=== PATIENT | female | born 1945 | race Caucasian/White ===

== ENCOUNTER 2020-07-13 08:14 | Outpatient (REF) | payer MEDICARE, OTHER, SELFPAY ==
[2020-07-13 11:45] LABS: Alanine Aminotransferase 28 U/L (0-31); Albumin Level 4.1 g/dL (3.5-5.0); Alkaline Phosphatase 104 U/L (39-117); Anion Gap 12 (12-20); Aspartate Amino Transferase 22 U/L (5-31); Bilirubin Total 1.2 mg/dL (0.0-1.0); Blood Urea Nitrogen 10 mg/dL (9-16); Calcium 9.3 mg/dL (8.4-10.2); Carbon Dioxide 31 mmol/L (22-29); Chloride 102 mmol/L (96-108); Cholesterol 216 mg/dL; Estimated Average Glucose 174 mg/dL; Estimated Glomerular Filt Rate > 60; Glucose Fasting 193 mg/dL (60-99); HDL Cholesterol 72 mg/dL; Hemoglobin A1c % 7.7 %; LDL Cholesterol Calculated 124 mg/dl; Potassium 4.9 mmol/l (3.3-5.1); Sodium 140 mmol/L (135-145); Total Protein 6.7 g/dL (6.5-8.0); Triglycerides 104 mg/dL
== END 2020-07-13 08:15 | disposition home or self-care (01) ==
LOC: HO.MANLR 08:14
PROVIDERS: PCP Internal Medicine; Visit Provider Internal Medicine
DX: E11.9 Type 2 diabetes mellitus without complications (principal)
CPT/HCPCS: 36415; 80053; 80061; 83036

== ENCOUNTER 2020-10-12 10:47 | Outpatient (REF) | payer MEDICARE, OTHER, SELFPAY ==
[2020-10-12 13:33] LABS: Estimated Average Glucose 177 mg/dL; Hemoglobin A1c % 7.8 %
== END 2020-10-12 10:48 | disposition home or self-care (01) ==
LOC: HO.MANLDS 10:47
PROVIDERS: PCP Internal Medicine; Visit Provider Internal Medicine
DX: E11.9 Type 2 diabetes mellitus without complications (principal)
CPT/HCPCS: 36415; 83036

== ENCOUNTER 2021-01-29 08:46 | Outpatient (REF) | payer MEDICARE, OTHER, SELFPAY ==
[2021-01-29 11:56] LABS: Estimated Average Glucose 214 mg/dL; Hemoglobin A1c % 9.1 %
[2021-01-29 12:02] LABS: Alanine Aminotransferase 18 U/L (0-31); Albumin Level 3.8 g/dL (3.5-5.0); Alkaline Phosphatase 85 U/L (39-117); Anion Gap 14 (12-20); Aspartate Amino Transferase 30 U/L (5-31); Bilirubin Total 1.4 mg/dL (0.0-1.0); Blood Urea Nitrogen 7 mg/dL (9-16); Calcium 9.2 mg/dL (8.4-10.2); Carbon Dioxide 28 mmol/L (22-29); Chloride 103 mmol/L (96-108); Cholesterol 174 mg/dL; Estimated Glomerular Filt Rate > 60; Glucose Fasting 252 mg/dL (60-99); HDL Cholesterol 49 mg/dL; LDL Cholesterol Calculated 97 mg/dl; Potassium 3.9 mmol/L (3.3-5.1); Sodium 141 mmol/L (135-145); Total Protein 6.1 g/dL (6.5-8.0); Triglycerides 143 mg/dL
[2021-01-29 12:18] LABS: Creatinine Urine 207.42 mg/dL
[2021-01-29 12:23] LABS: Thyroid Stimulating Hormone 2.28 uIU/mL (0.32-4.0)
== END 2021-01-29 08:47 | disposition home or self-care (01) ==
LOC: HO.MANLDS 08:46
PROVIDERS: PCP Internal Medicine; Visit Provider Internal Medicine
DX: E11.9 Type 2 diabetes mellitus without complications (principal); E03.9 Hypothyroidism, unspecified
CPT/HCPCS: 36415; 80053; 80061; 82043; 83036; 84443

== ENCOUNTER 2021-05-24 10:55 | Outpatient (REF) | payer MEDICARE, OTHER, SELFPAY ==
[2021-05-24 12:51] LABS: Hematocrit 37.7 % (37.0-47.0); Hemoglobin 12.3 g/dl (12.0-16.0); Mean Corpuscular HGB Conc 32.6 g/dl (31.0-35.0); Mean Corpuscular Hemoglobin 28.5 pg (27.0-33.0); Mean Corpuscular Volume 87.3 fL (80.0-98.0); Mean Platelet Volume 11.8 fL (9.4-12.3); Platelet Count 170 X10*3/uL (160-400); Red Blood Count 4.32 X10*6/uL (4.20-5.50); Red Cell Distribution Width 14.1 % (11.0-16.0); White Blood Count 6.7 X10*3/uL (4.8-10.8)
[2021-05-24 13:32] LABS: Alanine Aminotransferase 25 U/L (0-31); Albumin Level 3.9 g/dL (3.5-5.0); Alkaline Phosphatase 85 U/L (39-117); Anion Gap 15 (12-20); Aspartate Amino Transferase 35 U/L (5-31); Bilirubin Total 1.5 mg/dL (0.0-1.0); Blood Urea Nitrogen 7 mg/dL (9-16); Calcium 9.7 mg/dL (8.4-10.2); Carbon Dioxide 26 mmol/L (22-29); Chloride 105 mmol/L (96-108); Estimated Glomerular Filt Rate > 60; Glucose Fasting 110 mg/dL (60-99); Potassium 4.5 mmol/L (3.3-5.1); Sodium 141 mmol/L (135-145); Total Protein 6.6 g/dL (6.5-8.0)
[2021-05-24 13:38] LABS: Estimated Average Glucose 114 mg/dL; Hemoglobin A1c % 5.6 %
== END 2021-05-24 10:56 | disposition home or self-care (01) ==
LOC: HO.MANLDS 10:55
PROVIDERS: PCP Internal Medicine; Visit Provider Internal Medicine
DX: I10 Essential (primary) hypertension (principal); E11.9 Type 2 diabetes mellitus without complications
CPT/HCPCS: 36415; 80053; 83036; 85027

== ENCOUNTER 2021-09-02 11:35 | Outpatient (REF) | payer MEDICARE, OTHER, SELFPAY ==
[2021-09-02 13:53] LABS: Estimated Average Glucose 114 mg/dL; Hemoglobin A1c % 5.6 %
[2021-09-02 14:27] LABS: Creatinine Urine 198.87 mg/dL; Microalbum/Creatinine Ratio Ur 7.5 ug/mg cr
[2021-09-02 14:32] LABS: Alanine Aminotransferase 22 U/L (0-31); Alkaline Phosphatase 75 U/L (39-117); Anion Gap 12 (12-20); Aspartate Amino Transferase 33 U/L (5-31); Bilirubin Total 1.3 mg/dL (0.0-1.0); Blood Urea Nitrogen 8 mg/dL (9-16); Calcium 9.6 mg/dL (8.4-10.2); Carbon Dioxide 28 mmol/L (22-29); Chloride 107 mmol/L (96-108); Cholesterol 201 mg/dL; Estimated Glomerular Filt Rate > 60; Glucose Fasting 106 mg/dL (60-99); HDL Cholesterol 53 mg/dL; LDL Cholesterol Calculated 122 mg/dl; Potassium 3.9 mmol/L (3.3-5.1); Sodium 143 mmol/L (135-145); Total Protein 6.5 g/dL (6.5-8.0); Triglycerides 134 mg/dL
[2021-09-02 14:46] LABS: Free T4 (Free Thyroxine) 1.26 ng/dL (0.71-1.85); Thyroid Stimulating Hormone 0.24 uIU/mL (0.32-4.0)
== END 2021-09-02 11:36 | disposition home or self-care (01) ==
LOC: HO.MANLDS 11:35
PROVIDERS: PCP Internal Medicine; Visit Provider Internal Medicine
DX: E03.9 Hypothyroidism, unspecified (principal); E11.9 Type 2 diabetes mellitus without complications
CPT/HCPCS: 36415; 80053; 80061; 82043; 83036; 84439; 84443

== ENCOUNTER 2022-02-17 08:41 | Outpatient (REF) | payer MEDICARE, OTHER, SELFPAY ==
[2022-02-17 11:22] LABS: Alanine Aminotransferase 24 U/L (0-31); Alkaline Phosphatase 78 U/L (39-117); Anion Gap 15 (12-20); Aspartate Amino Transferase 36 U/L (5-31); Bilirubin Total 1.4 mg/dL (0.0-1.0); Blood Urea Nitrogen 10 mg/dL (9-16); Calcium 9.8 mg/dL (8.4-10.2); Carbon Dioxide 27 mmol/L (22-29); Chloride 108 mmol/L (96-108); Cholesterol 209 mg/dL; Estimated Glomerular Filt Rate > 60; Glucose Random 123 mg/dL (60-115); HDL Cholesterol 53 mg/dL; LDL Cholesterol Calculated 119 mg/dl; Potassium 4.4 mmol/L (3.3-5.1); Sodium 146 mmol/L (135-145); Total Protein 6.6 g/dL (6.5-8.0); Triglycerides 185 mg/dL
[2022-02-17 11:24] LABS: Estimated Average Glucose 114 mg/dL; Hemoglobin A1c % 5.6 %
[2022-02-17 11:36] LABS: Creatinine Urine 149.56 mg/dL; Microalbum/Creatinine Ratio Ur 12.7 ug/mg cr
[2022-02-17 11:42] LABS: Thyroid Stimulating Hormone 8.24 uIU/mL (0.32-4.0)
== END 2022-02-17 08:42 | disposition home or self-care (01) ==
LOC: HO.MANLDS 08:41
PROVIDERS: Visit Provider Internal Medicine
DX: E03.9 Hypothyroidism, unspecified (principal); E11.9 Type 2 diabetes mellitus without complications
CPT/HCPCS: 36415; 80053; 80061; 82043; 83036; 84443

== ENCOUNTER 2022-08-22 14:33 | Outpatient (REF) | payer MEDICARE, OTHER, SELFPAY ==
[2022-08-22 19:23] LABS: MANUAL DIFF FLAG NO
[2022-08-22 19:31] LABS: Basophils Absolute Auto 0.1 X10*3/uL (0.0-0.2); Basophils Percent Auto 1.4 % (0-2); Eosinophils Absolute Auto 0.3 X10*3/uL (0.0-0.4); Eosinophils Percent Auto 3.7 % (0-4); Hemoglobin 13.4 g/dl (12.0-16.0); Imm Gran Abs Auto 0.02 X10*3/uL (0.00-0.03); Imm Gran Pct Auto 0.3 % (0.0-0.4); Mean Corpuscular HGB Conc 33.5 g/dl (31.0-35.0); Mean Corpuscular Hemoglobin 28.1 pg (27.0-33.0); Mean Corpuscular Volume 83.9 fL (80.0-98.0); Mean Platelet Volume 11.7 fL (9.4-12.3); Monocytes Absolute Auto 0.7 X10*3/uL (0.1-1.2); Monocytes Percent Auto 9.7 % (2-11); Neutrophils Absolute Auto 4.2 x10*3/uL (2.0-8.3); Neutrophils Percent Auto 57.9 % (45-73); Platelet Count 176 X10*3/uL (160-400); Red Blood Count 4.77 X10*6/uL (4.20-5.50); Red Cell Distribution Width 13.3 % (11.0-16.0); White Blood Count 7.2 X10*3/uL (4.8-10.8)
[2022-08-22 19:42] LABS: Alanine Aminotransferase 19 U/L (0-31); Albumin Level 4.2 g/dL (3.5-5.0); Alkaline Phosphatase 97 U/L (39-117); Amylase 50 U/L (28-100); Anion Gap 17 (12-20); Aspartate Amino Transferase 26 U/L (5-31); Bilirubin Total 1.2 mg/dL (0.0-1.0); Blood Urea Nitrogen 12 mg/dL (9-16); C Reactive Protein 0.34 mg/dL (< or = 0.50); Calcium 9.8 mg/dL (8.4-10.2); Carbon Dioxide 28 mmol/L (22-29); Chloride 103 mmol/L (96-108); Estimated Glomerular Filt Rate > 60; Gamma Glutamyl Transpeptidase 59 U/L (7-33); Glucose Random 138 mg/dL (60-115); Lipase 42 U/L (8-78); Potassium 4.2 mmol/L (3.3-5.1); Sodium 144 mmol/L (135-145); Total Protein 6.7 g/dL (6.5-8.0)
[2022-08-22 19:58] LABS: Free T4 (Free Thyroxine) 0.97 ng/dL (0.71-1.85); Thyroid Stimulating Hormone 6.82 uIU/mL (0.32-4.0)
[2022-08-22 20:15] LABS: Erythrocyte Sedimentation Rate 22 MM/HR (0-20)
[2022-08-23 05:15] LABS: Estimated Average Glucose 140 mg/dL; Hemoglobin A1c % 6.5 %
== END 2022-08-22 14:34 | disposition home or self-care (01) ==
LOC: HO.MANLDS 14:33
PROVIDERS: Visit Provider Physician Assistant
DX: R63.0 Anorexia (principal); E11.9 Type 2 diabetes mellitus without complications
CPT/HCPCS: 36415; 80053; 82150; 82977; 83036; 83690; 84439; 84443; 85025; 85652; 86140

== ENCOUNTER 2022-12-02 11:37 | Outpatient (REF) | payer MEDICARE, OTHER, SELFPAY ==
[2022-12-02 14:10] LABS: Estimated Average Glucose 134 mg/dL; Hemoglobin A1c % 6.3 %
[2022-12-02 14:23] LABS: Alanine Aminotransferase 22 U/L (0-31); Albumin Level 3.8 g/dL (3.5-5.0); Alkaline Phosphatase 119 U/L (39-117); Anion Gap 13 (12-20); Aspartate Amino Transferase 24 U/L (5-31); Bilirubin Total 0.7 mg/dL (0.0-1.0); Blood Urea Nitrogen 19 mg/dL (9-16); Calcium 9.4 mg/dL (8.4-10.2); Carbon Dioxide 30 mmol/L (22-29); Chloride 105 mmol/L (96-108); Estimated Glomerular Filt Rate > 60; Glucose Random 194 mg/dL (60-115); Potassium 4.4 mmol/L (3.3-5.1); Sodium 144 mmol/L (135-145); Total Protein 6.3 g/dL (6.5-8.0)
[2022-12-02 14:40] LABS: Free T4 (Free Thyroxine) 0.92 ng/dL (0.71-1.85); Thyroid Stimulating Hormone 7.87 uIU/mL (0.32-4.0)
== END 2022-12-02 11:38 | disposition home or self-care (01) ==
LOC: HO.MANLDS 11:37
PROVIDERS: Visit Provider Internal Medicine
DX: E03.8 Other specified hypothyroidism (principal); E11.9 Type 2 diabetes mellitus without complications
CPT/HCPCS: 36415; 80053; 83036; 84439; 84443

== ENCOUNTER 2024-10-10 10:46 | Outpatient (REF) | payer MEDICARE, OTHER, SELFPAY ==
--- OUTSIDE RECORDS SUMMARY | 2024-10-10 12:47 | XMS_ITS | Continuity of Care Document ---
Author Organization [facility], [facility] Address [address] [place] [address] [place] [address] Assessment No assessment recorded. Plan of Treatment Reminders Order Date Submit Date Provider Last Modified By Organization Details Last Modified Time Details Appointments Hospital F/U 2024 10:00A M FOREIGN ZEPEDA Not available Not available Not available Lab hemoglobi n A1c, QN, blood 2024 025 [facility], [address] [place] [address], [id number], 10/10/2024 10:35:37 CMP, serum or plasma 2024 025 [facility], [address] [place] [address], [id number], 10/10/2024 10:35:37 TSH + free T4, serum 2024 025 [facility], [address] [place] [address], [id number], 10/10/2024 10:35:37 iron + TIBC + ferritin, serum 2024 025 [facility], [address] [place] [address], [id number], 10/10/2024 10:35:37 CBC w/ auto diff 2024 025 [facility], [address] [place] [address], [id number], 10/10/2024 10:35:37 vitamin B12 + folate, serum or blood 2024 025 [facility], [address], [place], [address], 10/10/2024 10:35:37 Referral None recorded. Procedures None recorded. Surgeries None recorded. Imaging None recorded. Medication Orders None recorded. Patient TargetsNo targets recorded. Patient InstructionsNo instructions recorded. Reason for Referral None Reported. 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 29441702 Active 2019 Not Available [facility] 20:36:42 Aphasia 42336895 Active 2021 FOREIGN ZEPEDA [address] [place] [address], [address], [facility] 2 12:16:17 Loss of appetite 62671956 Active 2022 FOREIGN ZEPEDA [address] [place] [address], [address], [facility] 3 14:12:55 Liver function tests outside reference range 124383901 Active 2022 FOREIGN ZEPEDA [address] [place] [address], [address], [facility] 3 14:04:20 Lumbago with sciatica 166949471 Active 2022 Ted Nunez DO [address] [place] [address], [address], [facility] 3 11:05:42 Lumbago with sciatica 020469152 Active 2022 Ted Nunez DO [address] [place] [address], [address], [facility] 3 11:05:49 Edema of lower extremity 727041174 Active 2022 FOREIGN ZEPEDA [address] [place], [address], [facility] 3 16:05:56 Candidias is of skin 33141065 Active 2022 FOREIGN ZEPEDA [address] [place], [address], [facility] 3 11:20:50 Celluliti s 777451045 Active 2022 FOREIGN ZEPEDA [address] [place] [address], [address], [facility] 3 11:22:19 Cerebrova scular accident 683612916 Active 2022 FOREIGN ZEPEDA [address] [place] [address], [address], [facility] 3 11:29:13 Transient cerebral ischemia 531094099 Active 2022 FOREIGN ZEPEDA [address] [place] [address], [address], [facility] 3 11:29:42 Pneumonia 877974064 Active 2023 FOREIGN ZEEPDA [address] [place] [address], [address], [facility] 4 14:48:40 Candidias is of vagina 84643655 Active 2023 FOREIGN ZEPEDA [address] [place] [address], , [facility] 4 10:21:06 Migraine 84252305 Active 2023 FOREIGN ZEPEDA [address] [place] [address], , [facility] 4 10:25:45 Dysuria 57668329 Active 2024 FOREIGN ZEPEDA [address] [place] [address], [address], [facility] 5 12:52:38 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 a pneumonia e 428348728 Active 2024 FOREIGN ZEPEDA [address] [place], [address], [facility] 5 16:46:53 Pressure injury of buttock stage I 493294181426 16195 Active 2024 FOREIGN ZEPEDA [address] [place], [address], [facility] 5 14:24:33 Memory impairmen t 375239575 Active 2024 FOREIGN ZEPEDA [address] [place] [address], [address], [facility] 5 14:06:33 Nausea and vomiting 79336795 Active 2024 FOREIGN ZEPEDA [address] [place], [address], [facility] 5 14:15:24 Dysphagia 97962867 Active 2024 FOREIGN ZEPEDA [address] [place], [address], [facility] 5 14:17:02 Anemia 214600357 Active 2024 FOREIGN ZEPEDA [address] [place], [address], [facility] 5 10:33:03 Hypothyro idism 83675300 Active 2017 Not Available [facility] 20:36:42 History of depressio n 414532929 Active 2017 Not Available [facility] 20:36:42 Hypertens nirali disorder 38381062 Active 2017 Not Available [facility] 20:36:42 Hyperlipi demia 25064795 Active 2017 Not Available [facility] 20:36:42 Polymyalg ia rheumatic a 59807807 Active 2017 Not Available [facility] 20:36:42 Lyme disease 34930780 Active 2017 Not Available [facility] 20:36:42 Type 2 diabetes mellitus 69054184 Active 2017 Not Available [facility] 20:36:42 Problem Notes None recorded. Procedures Surgical History Date Name Laterality Status Provider Name and Address Organization Details Recorded Time 5 WOUND CARE completed FOREIGN ZEPEDA [address] [place], [address], [facility] 09/09/2024 14:22:26 Imaging Results None recorded. Procedure Notes None recorded. Medical Equipment None Reported. Allergies Allergen ID Allergen Name Allergen Category Reaction Reaction Severity Criticality Documentation Date Start Date Code Code System Note Provider Name and Address Organization Details Recorded Time 1200 Product containin g penicilli n (product) medicatio n rash Not available Not available 11/06/2017 07380 8001 [facility] 16:[facility]56 1201 Substance with sulfonami de structure and antibacte rial mechanism of action (substanc e) medicatio n Not available Not available Not available 11/06/2017 89867 8003 [facility] 16:06[facility]08 3604 Levaquin medicatio n other moderate Not available 05/31/2019 00612 2 RxNorm Ted Nunez DO [address] [place], [address], [facility] 9 13:21:51 Medications Name Sig Start Date Stop Date Status Note LastModified by Organization Details LastModified Time levothyroxi ne 175 mcg tablet TAKE 1 TABLET BY MOUTH EVERY DAY 10/10 completed Not Available Not Available Not Available levothyroxi ne 137 mcg tablet Take 1 tablet every day by oral route for 90 days. 12/03 completed Not Available Not Available Not Available atorvastati n 80 mg tablet TAKE 1 TABLET BY MOUTH EVERY DAY active Not Available Not Available No t Available prednisone 10 mg tablet TAKE 1 TABLET BY MOUTH TWICE A DAY FOR 10 DAYS 09/09 completed Not Available Not Available Not Available gabapentin 600 mg tablet TAKE 1 TABLET BY MOUTH TWICE A DAY 04/21 completed Not Available Not Available Not Available doxycycline hyclate 100 mg capsule TAKE 1 CAPSULE BY MOUTH TWICE A DAY FOR 10 DAYS 10/10 completed Not Available Not Available Not Available paroxetine 10 mg tablet Take 1.5 tablets every day by oral route. 08/22 completed Not Available Not Available Not Available torsemide 20 mg tablet TAKE 2 TABLETS BY MOUTH EVERY DAY active Not Available Not Available No t Available citalopram 40 mg tablet TAKE 1 TABLET BY MOUTH EVERY DAY active Not Available Not Available No t Available cefpodoxime 200 mg tablet 08/17 completed Not Available Not Available Not Available azithromyci n 250 mg tablet TAKE 2 TABLETS BY MOUTH TODAY, THEN TAKE 1 TABLET DAILY FOR 4 DAYS DIRECTED 08/17 completed Not Available Not Available Not Available ofloxacin 0.3 % eye drops 08/09 completed Not Available Not Available Not Available fluconazole 150 mg tablet TAKE 1 TABLET BY MOUTH EVERY DAY DIRECTED FOR 2 DAYS 10/10 completed Not Available Not Available Not Available zinc oxide 25 % topical paste Apply 1 g twice a day by topical route as directed for 30 days. 09/09 completed Not Available Not Available Not Available ondansetron HCl 8 mg tablet TAKE 1 TABLET BY MOUTH THREE TIMES DAILY NEEDED 08/22 completed Not Available Not Available Not Available fluconazole 200 mg tablet TAKE 1 TABLET BY MOUTH EVERY DAY FOR 14 DAYS 10/10 completed Not Available Not Available Not Available glipizide ER 10 mg tablet, extended release 24 hr TAKE 1 TABLET BY MOUTH EVERY DAY NEEDS APPT FOR FURTHER REFILLS. CALL OFFICE 04/15 completed Not Available Not Available Not Available meloxicam 15 mg tablet TAKE 1 TABLET BY MOUTH EVERY DAY active Not Available Not Available No t Available glipizide 10 mg tablet Take 1 tablet every day by oral route. active Not Available Not Available No t Available prednisone 20 mg tablet 11/09 completed Not Available Not Available Not Available gabapentin 400 mg capsule TAKE 1 CAPSULE BY MOUTH TWICE DAILY 05/24 completed Not Available Not Available Not Available prednisone 5 mg tablet 11/09 completed Not Available Not Available Not Available ciprofloxac in 500 mg tablet TAKE 1 TABLET BY MOUTH EVERY 12 HOURS FOR 7 DAYS 09/09 completed Not Available Not Available Not Available tramadol 50 mg tablet TAKE 2 TABLETS BY MOUTH EVERY 6 HOURS NEEDED FOR 7 DAYS 04/15 completed Not Available Not Available Not Available butalbital- acetaminoph en-caffeine 50 mg-325 mg-40 mg tablet Take 1 tablet 4 times a day by oral route as needed. 2023 active Not Available Not Available Not Avai lable ondansetron 8 mg disintegrat ing tablet PLACE 1 TABLET ON TONGUE TWICE A DAY DIRECTED FOR 14 DAYS. active Not Available Not Available No t Available meloxicam 7.5 mg tablet TAKE 1 TABLET BY MOUTH [facility] FOOD EVERY DAY NEEDED 08/22 completed Not Available Not Available Not Available alprazolam 0.5 mg tablet TAKE 1 TABLET BY MOUTH EVERY 6 TO 8 HOURS NEEDED 02/18 completed Not Available Not Available Not Available gabapentin 800 mg tablet TAKE 1 TABLET BY MOUTH TWICE A DAY 10/10 completed Not Available Not Available Not Available prednisone 1 mg tablet 11/09 completed Not Available Not Available Not Available benzonatate 100 mg capsule TAKE 1 TO 2 CAPSULES BY MOUTH EVERY 8 HOURS NEEDED 11/09 completed Not Available Not Available Not Available prednisone 2.5 mg tablet 11/09 completed Not Available Not Available Not Available cephalexin 500 mg capsule TAKE 1 CAPSULE BY MOUTH EVERY 6 HOURS FOR 10 DAYS 04/15 completed Not Available Not Available Not Available levothyroxi ne 125 mcg tablet TAKE 1 TABLET BY MOUTH EVERY DAY 08/26 completed Not Available Not Available Not Available triamcinolo ne acetonide 0.1 % topical ointment MATA EXT AA BID PRN 05/24 completed Not Available Not Available Not Available nystatin 100,000 unit/gram topical cream APPLY TO AFFECTED AREA TWICE A DAY active Not Available Not Available No t Available misoprostol 200 mcg tablet Take 1 tablet by mouth twice a day 08/09 completed Not Available Not Available Not Available levothyroxi ne 150 mcg tablet Take 1 tablet every day by oral route. active Not Available Not Available No t Available gabapentin 300 mg capsule 11/09 completed Not Available Not Available Not Available aspirin 81 mg chewable tablet CHEW AND SWALLOW 1 TABLET BY MOUTH DAILY active Not Available Not Available No t Available diclofenac sodium 75 mg tablet,brennan yed release TAKE ONE TABLET BY MOUTH TWICE A DAY WITH MEALS 04/28 completed Not Available Not Available Not Available mupirocin 2 % topical ointment APPLY A SMALL AMOUNT TO AFFECTED AREA 3 TIMES A DAY active Not Available Not Available No t Available furosemide 20 mg tablet TAKE 1 TABLET BY MOUTH EVERY DAY FOR 14 DAYS 10/10 completed Not Available Not Available Not Available levofloxaci n 500 mg tablet Take 1 tablet every 24 hours by oral route for 10 days. 09/02 completed Not Available Not Available Not Available methylpredn isolone 4 mg tablets in a dose pack TAKE 6 TABLETS ON DAY 1 DIRECTED ON PACKAGE AND DECREASE BY 1 TAB EACH DAY FOR A TOTAL OF 6 DAYS 08/17 completed Not Available Not Available Not Available paroxetine 40 mg tablet TAKE 1 AND 1/2 TABLETS BY MOUTH EVERY DAY 02/18 completed Not Available Not Available Not Available fluticasone propionate 50 mcg/actuati on nasal spray,suspe nsion Yoder 1 spray every day by intranasa l route. 08/09 completed Not Available Not Available Not Available doxycycline hyclate 100 mg tablet Take 1 tablet twice a day by oral route for 10 days. 10/10 completed Not Available Not Available Not Available glipizide 5 mg tablet TAKE 1 TABLET BY MOUTH EVERY DAY 10/10 completed Not Available Not Available Not Available duloxetine 60 mg capsule,del ayed release TAKE 1 CAPSULE BY MOUTH EVERY DAY active Not Available Not Available No t Available Boostrix Tdap 2.5 Lf unit-8 mcg-5 Lf/0.5 mL intramuscul ar syringe 04/28 completed Not Available Not Available Not Available Prevnar 13 (PF) 0.5 mL intramuscul ar syringe ADM 0.5ML IM UTD 10/12 completed Not Available Not Available Not Available torsemide 40 mg tablet Take 1 tablet every day by oral route for 14 days. 04/15 completed Not Available Not Available Not Available Vitals Date Recorded Body height Body mass index (BMI) Body weight Heart rate Oxygen saturation Oxygen saturation in Arterial blood by Pulse oximetry Systolic blood pressure Diastolic blood pressure Provider Name and Address Organization Details Last Updated DateTime 5 167.64 cm 46.5 kg/m2 764252. 24 g 103 /min 94 % 94 % 134 mm[Hg] 78 mm[Hg] Daysi Varma [facility] 5 10:06:21 Social History Question Answer Notes LastModified by Organizat ion Details LastModified Time Tobacco Smoking Status Never Smoker Not Available [facility] 05/08/2020 03:36:24 What Was The Date Of Your Most Recent Tobacco Screening? 10/10/2024 [email or web address] Information not available 10/10/2024 Do You Or Have You Ever Used Any Other Forms Of Tobacco Or Nicotine? No Information not available 09/09/2024 Sex: Unknown Functional Status None recorded. Mental Status None recorded. Family History Nothing Reported. Medical History No medical history recorded. Gynecological HistoryNo gynecological history recorded. Obstetrics History GPAL:G 0 P 0 0 0 0 Immunizations Vaccine Type Date Status Note Provider Nam e and Address Organization Details Recorded Time Influenza, split virus, quadrivalent, preservative 03/17/20 18 completed Karen amaya [facility] 04/04/2020 10:08:50 Tdap 03/17/20 18 completed Karen amaya [facility] 04/04/2020 10:08:50 COVID-19, mRNA, LNP-S, PF, 30 mcg/0.3 mL dose 10/04/19 21 completed Eri amaya [facility] 02/05/2021 10:16:05 COVID-19, mRNA, LNP-S, PF, 30 mcg/0.3 mL dose 10/27/19 21 completed Eri amaya [facility] 02/05/2021 10:16:09 Influenza, split virus, quadrivalent, preservative 04/24/20 21 completed Ted Nunez, DO [address] [facility], [place], [address], [facility] 04/25/2021 16:51:57 COVID-19, mRNA, LNP-S, PF, 30 mcg/0.3 mL dose 04/30/20 21 completed Eri amaya [facility] 05/03/2021 08:21:32 pneumococcal polysaccharide PPV23 04/25/20 14 completed Karen amaya [facility] 04/04/2020 10:08:50 zoster live 06/05/20 16 completed Karen amaya [facility] 04/04/2020 10:08:50 Td(adult) unspecified formulation 09/04/19 12 completed Karen amaya [facility] 04/04/2020 10:08:50 Influenza, split virus, quadrivalent, preservative 03/21/20 20 completed Karen amaya [facility] 04/04/2020 10:08:50 Pneumococcal conjugate PCV 13 05/29/20 20 completed Ted Nunez, DO [address] [place] [address], [place], [address], [facility] 05/31/2020 17:41:59 Past Encounters Encounter ID Performer Location Encounter Start Date Encounter Closed Date Diagnosis/Indication Diagnosis SNOMED-CT Code Diagnosis ICD10 Code Diagnosis Note [id number] FOREIGN ZEPEDA [facility] [address] [address] 09/09/2024 13:51:47 09/09/2024 14:59:56 Pressure injury of buttock stage I 7913378063 5493632 L89.309 started a few Memory impairment 117231 006 R41.3 after stroke, complicati on due to stroke Nausea and vomiting 1691999 R11.2 agreed to trial something for nausea while we work her up for the dysphagia Dysphagia 41708080 R13.1 2 agreed to swallow study [id number] FOREIGN ZEPEDA [facility] [address] [address] 10/10/2024 09:40:32 10/10/2024 10:42:42 Type 2 diabetes mellitus 46658900 E11.9 stable Body mass index 40+ - severely obese 128622904 Z68.43 discussed diet and exercises Cerebrovas cular accident 554143352 I63.9 stable Hypertensive disorder 38 671981 I10 134/78 L arm Hypothyroidism 74472218 E03.8 dropped down to 150 mcg Transient cerebral ischemia 243340891 G45.9 stable Anemia 424271582 D64.9 will set up with recheck blood work Health Concerns Section Related Observation LastModified by Organization Detai ls LastModified Time None Recorded Concern Status LastModified by Organization Details LastModified Time None Recorded Payers Encounter Date Sequence Insurance Name Policy Number Policy Novak Covered Member ID Novak Member ID Guarantor Name 10/10/2024 1 [place] [employer] Minoo Anderson [id number] Minoo Anderson 10/10/2024 2 [facility] (MEDICARE SUPPLEMENT) Minoo Anderson [id number] Minoo Anderson Notes Date Note Type Note Provider Name a nd Address Organization Details Recorded Time 10/10/2024 text/html hospital d/c the patient was admitted to the hospital with presentation of AMSd/c note mentions she has been refusing her medication for about a weekthe patient reports that she had a CT x 2 and MRI x 1, no sig acute changes suggestive of CVA the patient lab work was overall w/n/l, mild anemia which is baseline for patient reports that she was very confused, would forget where she was going, what she was doing to note, patient has hx of dementia/memory impairment since 2022 the patient states she is baseline memory, aware she does have memory issues the patient is currently showing lower glucose at home, was in the 200s in the hospital, says her glucose is now down to 99 a1c was 9.6% per reportthe patient was increased on her glipizide 10 mg rechjenaro MCMILLAN, FOREIGN [address] [facility], [place], [address], [facility] 10/10/2024 10:38:24 OBGyn Episode No OBEpisode recorded.
--- OUTSIDE RECORDS SUMMARY | 2024-10-10 12:47 | XMS_ITS | Data Portability ---
Author Organization [facility] Home Service Address [address] [place] [address] Assessment Encounter Date Assessment Date Assessment LastModified by Organization Details LastModified Time 07/15/2023 07/15/2023 Patient agreed and verbally consents to this audio and video Telehealth appt via a secure platform [email or web address] Not available 07/15/2023 14:49:15 04/15/2024 04/15/2024 Patient agreed and verbally consents to this audio and video Telehealth appt via a secure platform [email or web address] Not available 04/15/2024 10:22:38 08/17/2024 08/17/2024 Patient agreed and verbally consents to this audio and video Telehealth appt via a secure platform [email or web address] Not available 08/17/2024 14:30:02 Plan of Treatment Reminders Order Date Submit Date Provider Last Modified By Organization Details Last Modified Time Details Appointments Hospital F/U 2024 10:00A M FOREIGN ZEPEDA Not available Not available Not available Lab culture, wound 2024 025 [facility], [address] [place] [address], [place], [address], 09/11/2024 18:21:03 Referral None recorded. Procedures None recorded. Surgeries None recorded. Imaging barium swallow study 2024 025 [facility] - Outpatient Imaging Central Scheduling (Not Breast), [address] [place] [address], [id number], 09/23/2024 08:15:01 Medication Orders mupirocin 2 % topical ointment 2024 025 [facility]Pharmacy #2025, [address] [place] [address], [id number], 09/09/2024 14:14:26 ondansetr on 8 mg disintegr ating tablet 2024 025 [facility] [address] [place] [address], [address], 09/09/2024 14:18:43 ciproflox acin 500 mg tablet 2024 025 [facility] [address] [place] [address], [address], 09/09/2024 14:13:12 prednison e 10 mg tablet 2024 025 [facility] [address] [place] [address], [address], 09/09/2024 14:13:00 fluconazo le 200 mg tablet 2024 025 [facility] [address] [place] [address], [address], 08/17/2024 14:28:40 butalbita l-acetami nophen-ca ffeine 50 mg-325 mg-40 mg tablet 2023 024 [facility] [address] [place] [address], [address], 04/15/2024 10:26:10 nystatin 100,000 unit/gram topical cream 2023 024 [facility]Ph[facility]acy #2024, [address] [place] [address], [address], 04/15/2024 10:29:44 fluconazo le 150 mg tablet 2023 024 [email or web address] [facility] #2024, [address] [place] [address], [address], 08/17/2024 14:24:13 Zithromax Z-Juan Carlos 250 mg tablet 2023 024 [facility] [address] [place] [address], [address], 08/17/2024 14:23:26 prednison e 10 mg tablet 2023 024 [facility] [address] [place] [address], [address], 09/09/2024 14:12:58 doxycycli ne hyclate 100 mg capsule 2023 024 [facility] [address] [place] [address], [address], 04/15/2024 10:19:20 Medrol (Juan Carlos) 4 mg tablets in a dose pack 2023 [facility] [address] [place] [address], [address], 08/17/2024 14:24:19 nystatin 100,000 unit/gram topical cream 2022 023 [facility] [address] [place], [address], 04/21/2023 11:22:17 fluconazo le 150 mg tablet 2022 023 [facility] [address] [place], [address], 08/17/2024 14:24:13 cephalexi n 500 mg capsule 2022 024 [facility] [address] [place] [address], [address], 04/15/2024 10:19:13 Patient TargetsNo targets recorded. Patient InstructionsNo instructions recorded. Reason for Referral None Reported. Results Created Date Observation Date Name Description Value Unit Range Abnormal Flag Note LastModifiedBy Organization Detail LastModifiedTime 09/16/1909/16/2023 trans -thor acic echoc ardio gram (TTE) (PROC ) No observ ation record ed. [email or web address] [facility] [place] [address], [place], [address], 09/16/2023 15:08:27 Result Notes None recorded. 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 95109982 Active 2019 Not Available [facility] 1 20:36:42 Acute bronchiti s 40422723 Active 2021 FOREIGN ZEPEDA [address] [place] [address], [address], [facility] 2 10:40:18 Acute sinusitis 89362459 Active 2021 Ted Nunez DO [address] [place] [address], [address], [facility] 2 14:20:12 Aphasia 24144536 Active 2021 FOREIGN ZEPEDA [address] [place] [address], [address], [facility] 2 12:16:17 Loss of appetite 49813840 Active 2022 FOREIGN ZEPEDA [address] [place] [address], [address], [facility] 3 14:12:55 Liver function tests outside reference range 659793821 Active 2022 FOREIGN ZEPEDA [address] [place] [address], [address], [facility] 3 14:04:20 Lumbago with sciatica 716632437 Active 2022 Ted Nunez DO [address] [place] [address], [address], [facility] 3 11:05:42 Lumbago with sciatica 520839129 Active 2022 Ted Nunez, DO [address] [place], [address], [facility] 3 11:05:49 Edema of lower extremity 693164832 Active 2022 FOREIGN ZEPEDA [address] [place], [address], [facility] 3 16:05:56 Candidias is of skin 71729943 Active 2022 FOREIGN ZEPEDA [address] [place] [address], [address], [facility] 3 11:20:50 Celluliti s 409485783 Active 2022 FOREIGN ZEPEDA [address] [place] [address], [address], [facility] 3 11:22:19 Cerebrova scular accident 118594876 Active 2022 FOREIGN ZEPEDA [address] [place] [address], [address], [facility] 3 11:29:13 Transient cerebral ischemia 940395431 Active 2022 FOREIGN ZEPEDA [address] [place] [address], [address], [facility] 3 11:29:42 Pneumonia 741703661 Active 2023 FOREIGN ZEPEDA [address] [place] [address], [address], [facility] 4 14:48:40 Candidias is of vagina 22765839 Active 2023 FOREIGN ZEPEDA [address] [place] [address], [address], [facility] 4 10:21:06 Migraine 44034344 Active 2023 FOREIGN ZEPEDA [address] [place] [address], [address], [facility] 4 10:25:45 Dysuria 19308946 Active 2024 FOREIGN ZEPEDA [address] [place] [address], [address], [facility] 5 12:52:38 Acute urinary tract infection 914054947 Active 2024 FOREIGN ZEPEDA [address] [place] [address], [address], [facility] 5 16:45:03 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 a pneumonia e 712135575 Active 2024 FOREIGN ZEPEDA [address] [place] [address], [address], [facility] 5 16:46:53 Pressure injury of buttock stage I 319096617172 02615 Active 2024 FOREIGN ZEPEDA [address] [place] [address], [address], [facility] 5 14:24:33 Memory impairmen t 624117974 Active 2024 FOREIGN ZEPEDA [address] [place] [address], [address], [facility] 5 14:06:33 Nausea and vomiting 78511448 Active 2024 FOREIGN ZEPEDA [address] [place] [address], [address], [facility] 5 14:15:24 Dysphagia 75432404 Active 2024 FOREIGN ZEPEDA [address] [place] [address], [address], [facility] 5 14:17:02 Hypothyro idism 16770794 Active 2017 Not Available [facility] 20:36:42 History of depressio n 692516371 Active 2017 Not Available [facility] 20:36:42 Hypertens nirali disorder 51274966 Active 2017 Not Available [facility] 20:36:42 Hyperlipi demia 89897631 Active 2017 Not Available [facility] 20:36:42 Polymyalg ia rheumatic a 40324873 Active 2017 Not Available [facility] 20:36:42 Lyme disease 01644644 Active 2017 Not Available [facility] 20:36:42 Type 2 diabetes mellitus 56365228 Active 2017 Not Available [facility] 20:36:42 Problem Notes None recorded. Procedures Surgical History Date Name Laterality Status Provider Name and Address Organization Details Recorded Time WOUND CARE completed FOREIGN ZEPEDA [address] [place] [address], [address], [facility] 09/09/2024 14:22:26 Imaging Results Imaging Date Name Status LastModified by Organization Details LastModified Time 09/16/2023 trans-thoracic echocardiogram (TTE) (PROC) completed [email or web address] [facility] [address], [place], [address], 09/16/2023 15:08:27 Procedure Notes None recorded. Medical Equipment None Reported. Allergies Allergen ID Allergen Name Allergen Category Reaction Reaction Severity Criticality Documentation Date Start Date Code Code System Note Provider Name and Address Organization Details Recorded Time 1200 Product containin g penicilli n (product) medicatio n rash Not available Not available 11/06/2017 35671 8001 SNOMED Veronika amaya [facility] 8 16:05:56 1201 Substance with sulfonami de structure and antibacte rial mechanism of action (substanc e) medicatio n Not available Not available Not available 11/06/2017 53472 8003 SNOMED Veronika amaya [facility] 8 16:06:08 3604 Levaquin medicatio n other moderate Not available 05/31/2019 96747 2 RxNorm Ted Nunez DO [address] [place], [address], [facility] 9 13:21:51 Medications Name Sig Start Date Stop Date Status Note LastModified by Organization Details LastModified Time levothyroxi ne 175 mcg tablet TAKE 1 TABLET BY MOUTH EVERY DAY active Not Available Not Available No t Available levothyroxi ne 137 mcg tablet Take [...] MOUTH TWICE A DAY FOR 10 DAYS active Not Available Not Available No t Available paroxetine 10 mg tablet Take 1.5 [...] Available Not Available fluconazole 150 mg tablet Take 1 tablet by oral route as directed for 2 days. active Not Available Not Available No t Available zinc oxide 25 % topical paste [...] BY MOUTH EVERY DAY FOR 14 DAYS active Not Available Not Available No t Available glipizide ER 10 mg tablet, extended [...] 1 TABLET BY MOUTH TWICE A DAY active Not Available Not Available No t Available prednisone 1 mg tablet 11/09 completed [...] Not Available levothyroxi ne 150 mcg tablet TAKE 1 TABLET BY MOUTH EVERY MORNING 12/05 completed Not Available Not Available Not Available gabapentin 300 mg capsule 11/09 completed [...] No t Available furosemide 20 mg tablet Take 1 tablet every day by oral route for 14 days. active Not Available Not Available No t Available levofloxaci n 500 mg tablet Take [...] propionate 50 mcg/actuati on nasal spray,suspe nsion [place] 1 spray every day by intranasa l route. 08/09 completed Not Available Not Available Not Available doxycycline hyclate 100 mg tablet Take 1 tablet twice a day by oral route for 10 days. active Not Available Not Available No t Available glipizide 5 mg tablet TAKE 1 TABLET BY MOUTH EVERY DAY active Not Available Not Available No t Available duloxetine 60 mg capsule,del ayed release [...] and Address Organization Details Last Updated DateTime 3 169.55 cm 50 kg/m2 498210. 78 g 93 /min 95 % 95 % 138 mm[Hg] 86 mm[Hg] Kaylee Steffanie [facility] 3 11:14:10 Date Recorded Body height Heart rate Oxygen saturation Oxygen saturation in Arterial blood by Pulse oximetry Systolic blood pressure Diastolic blood pressure Provider Name and Address Organization Details Last Updated DateTime 5 167.64 cm 113 /min 99 % 99 % 128 mm[Hg] 60 mm[Hg] Sheri Nelson [facility] 5 13:58:59 Social History Question Answer Notes LastModified by Organizat ion Details LastModified Time Tobacco Smoking Status Never Smoker Not Available [facility] 05/08/2020 03:36:24 What Was The Date Of Your Most Recent Tobacco Screening? 09/09/2024 Information not available 09/09/2024 Do You Or Have You Ever Used Any Other Forms Of Tobacco Or Nicotine? No [email or web address] Information not available 09/09/2024 Sex: Unknown Functional Status None recorded. Mental Status None recorded. Family History Nothing Reported. Medical History No medical history recorded. Gynecological HistoryNo gynecological history recorded. Obstetrics History GPAL:G 0 P 0 0 0 0 Immunizations Vaccine Type Date Status Note Provider Nam e and Address Organization Details Recorded Time Influenza, split virus, quadrivalent, preservative 03/17/20 18 completed Karen amaya [facility] 04/04/2020 10:08:50 Tdap 03/17/20 18 completed Karen amaya [facility] 04/04/2020 10:08:50 COVID-19, mRNA, LNP-S, PF, 30 mcg/0.3 mL dose 10/04/19 21 completed Eri amaya [facility] 02/05/2021 10:16:05 COVID-19, mRNA, LNP-S, PF, 30 mcg/0.3 mL dose 10/27/19 21 completed Eri amaya [facility] 02/05/2021 10:16:09 Influenza, split virus, quadrivalent, preservative 04/24/20 21 completed Ted Nunez, [address] [place], [address], [facility] 04/25/2021 16:51:57 COVID-19, mRNA, LNP-S, PF, 30 mcg/0.3 mL dose 04/30/20 21 completed Eri amaya [facility] 05/03/2021 08:21:32 pneumococcal polysaccharide PPV23 04/25/20 14 completed Karen amaya [facility] 04/04/2020 10:08:50 zoster live 06/05/20 16 completed Karen amaya [facility] 04/04/2020 10:08:50 Td(adult) unspecified formulation 09/04/19 12 completed Karen amaya [facility] 04/04/2020 10:08:50 Influenza, split virus, quadrivalent, preservative 03/21/20 20 completed Karen amaya [facility] 04/04/2020 10:08:50 Pneumococcal conjugate PCV 13 05/29/20 20 completed Ted Nunez, [address] [place], [address], [facility] 05/31/2020 17:41:59 Past Encounters Encounter ID Performer Location Encounter Start Date Encounter Closed Date Diagnosis/Indication Diagnosis SNOMED-CT Code Diagnosis ICD10 Code Diagnosis Note [id number] Leah Levi NP, S [facility] [address] [facility],[place] [address] 11/09/2017 10:23:16 11/09/2017 15:23:04 Chronic cough 15308510 R05 Impaired f asting glycemia 996738867 R73.01 to check RBS and A1C today in house Hypothyroidism 58883560 E03.9 check labs today, prior to making dose decisions [id number] Leah Levi NP, [facility] [address] [facility],[place] [address] 11/16/2017 10:40:43 11/16/2017 16:33:22 Type 2 diabetes mellitus 75917830 E11.9 Must focus on healthy dietary choices and begin walking program, pt. agrees, defers meds at this time Hypothyroidism 40972935 E03.9 increase levoxyl to 125 mcg 1-1/2 tabs q Mon, Wed & Fri, 1 tab rest of days recheck levels in 3 weeks Hypercholesterolemia 136 17792 E78.00 mild, will recheck with diet, exercise improvemen ts [id number] Leah Levi NP, [facility] [address] [facility],[place] [address] 12/28/2017 10:15:09 12/28/2017 11:57:41 Hypothyroidism 28846679 E03.9 Pre-existi ng type 2 diabetes mellitus 656634828 E11.9 discuss appropriat e diet Essential hypertension 88604506 I10 stable [id number] Leah Levi NP, [facility] [address] [facility],[place] [address] 04/28/2018 09:52:05 04/30/2018 09:30:57 Adult health examination 324499683 Z00.00 History of depression 16 3556744 Z86.59 stable with current dose Paxil Type 2 carissa betes mellitus 67675815 E11.9 Must focus on healthy dietary choices and begin walking program, pt. agrees, defers meds at this time A1C 6.6 Hypertensive disorder 38 133638 I10 stable Hypothyroidism 80987663 E03.9 TSH > 8, nml Free T4-follow Hyperlipidemia 57767306 E78.2 Pt. refuses medication Polymyalgi a rheumatica 73633498 M35.[address] Chauhan [facility] Body mass index 40+ - severely obese 417363003 Z68.43 [id number] Ted Nunez, [facility] [address] [facility],[place] [address] 08/09/2018 10:00:24 08/09/2018 14:08:52 Type 2 diabetes mellitus 86999418 E11.9 needs a1c Hypothyroidism 47360823 E03.9 will check with tsh Hypertensive disorder 38 163085 I10 here for recheck and doing ok overall Polymyalgi a rheumatica 63709985 M35.3 seeing her rheumatolo gist Atypical pneumonia 96766 6009 J18.9 [id number] Ted Nunez [facility] [address] [facility],[place] [address] 11/10/2018 10:55:50 11/10/2018 11:48:22 Type 2 diabetes mellitus 77973431 E11.9 needs a1c done as she has a increase in the a1c at 7.0 this winter Hypothyroidism 20253965 E03.9 tsh is wnl and she is doing well Hypertensive disorder 38 057107 I10 here for recheck and doing ok overall Osteopenia 010069789 M85 .80 will need a bone scan test Hepatitis C screening 41 5091431 Z11.59 will check lab [id number] Ted Nunez [facility] [address] [facility],[place] [address] 02/11/2019 10:20:49 02/11/2019 10:44:57 Type 2 diabetes mellitus 25214584 E11.9 needs a1c done as she has a decrease in the a1c at 6.7 this summer Hypothyroidism 83482953 E03.9 tsh is wnl and she is doing well Hypertensive disorder 38 149821 I10 here for recheck and doing ok overall Pneumonia 772897186 J18. 9 azithromyc in for a clinical pneumonia infection [id number] ANIL [facility] [address] [facility],[address] [place] [address] 05/02/2019 10:24:44 05/02/2019 11:31:37 Body mass index 40+ - severely obese 448188832 Z68.43 Atypical chest pain 1025 22520 R07.89 ekg reassuring Orthopnea 61576262 R06.0 1 Upper resp iratory infection 54828976 J06.9 ? flu with low grade fever although sx now 1-2 weeks well past treatment range [id number] Ted Nunez [facility] [address] [facility],[place] [address] 05/25/2019 13:20:36 05/25/2019 14:33:41 Type 2 diabetes mellitus 13521477 E11.9 needs a1c done as she has a decrease in the a1c at 6.7 this summer Hypothyroidism 50050829 E03.9 tsh is wnl and she is doing well Hypertensive disorder 38 044056 I10 here for recheck and doing ok overall Pneumonia 303122462 J18. 9 azithromyc in for a clinical pneumonia infection Contusion of lower leg 05112832 S80.10XA will elevate and heat to the areas of small hematomas [id number] Ted Nunez [facility] [address] [facility], [place] [address] 09/02/2019 10:15:33 09/02/2019 11:28:54 Hypothyroidism 30412052 E03.9 tsh is wnl and she is doing well Type 2 carissa betes mellitus 88852273 E11.9 needs a1c done bc she has not gotten yet as she has a decrease in the a1c at 6.7 this summer Hypertensive disorder 38 689972 I10 here for recheck and doing ok overall Pneumonia 941366732 J18. 9 azithromyc in for a clinical pneumonia infection [id number] Ted Nunez [facility] [address] [facility], [place] [address] 11/25/2019 10:59:50 11/25/2019 11:22:59 Adult health examination 119412472 Z00.00 Screening for cardiovascular system disease 182346768 Z13.6 Screening for malignant neoplasm of colon 578709714 Z12.11 refuses Screening for osteoporosis 966894035 Z13.820 Screening mammography 24 546599 Z12.31 Type 2 carissa betes mellitus 96666311 E11.9 needs a1c done bc she has not gotten yet as she has a decrease in the a1c at 6.7 this summer Hypertensive disorder 38 946635 I10 here for recheck and doing ok overall [id number] Ted Nunez [facility] [address] [facility], [place] [address] 04/04/2020 10:01:36 04/04/2020 10:49:11 Hypertensive disorder 30075503 I10 here for recheck and doing ok overall Hypothyroidism 55972999 E03.9 tsh is wnl and she is doing well Hyperlipidemia 79425002 E78.5 will be checking next lab Type 2 carissa betes mellitus 31492501 E11.9 a1c done was 7 bc she has not gotten yet as she will get the a1c next month [id number] Ted Nunez [facility] [address] [facility],[place] [address] 07/17/2020 08:48:31 07/17/2020 11:44:16 Degenerative joint disease of shoulder region 62066342 M19.019 following ortho for this and rheum Hypertensive disorder 38 555412 I10 here for recheck and doing ok overall Type 2 carissa betes mellitus 93697564 E11.9 a1c done was 7. 7 which is worse she is noted to have not been compliant with diet relates she will try as we are at the point she will need treatment she understand s and will chk a1c in 3 mo Hypothyroidism 22402244 E03.9 tsh was wnl and she is doing well symptomati jannette but she will need more tsh test as she is overdue [id number] [facility] [address] [facility],[place] [address] 10/12/2020 10:03:39 10/12/2020 10:46:47 Hypertensive disorder 44106721 I10 here for recheck and doing ok overall Type 2 carissa betes mellitus 41367948 E11.9 a1c done was 7 bc she has not gotten yet as she will get the a1c next month Hypothyroidism 85178507 E03.9 tsh is wnl and she is doing well [id number] [facility] [address] [facility],[place] [address] 02/06/2021 10:09:57 02/06/2021 11:44:33 Hypothyroidism 95292499 E03.9 tsh is wnl and she is doing well Type 2 carissa betes mellitus 36504989 E11.9 a1c done was 7 bc she has not gotten yet as she will get the a1c next month Hypertensive disorder 38 531658 I10 here for recheck and doing ok overall Polymyalgi a rheumatica 07039431 M35.3 seeing her rheumatolo gist Body mass index 40+ - severely obese 774796207 Z68.43 [id number] Ted Carvalho [facility] [address] [facility],[place] [address] 05/24/2021 10:09:02 05/24/2021 16:12:17 Hypertensive disorder 58041083 I10 here for recheck and doing ok overall Hypothyroidism 58286795 E03.9 tsh is wnl and she is doing well Type 2 carissa betes mellitus 25546514 E11.9 a1c done was 7 bc she has not gotten yet as she will get the a1c next month [id number] Ted Carvalho Mayra [facility] [address] [facility],[place] [address] 09/10/2021 14:07:21 09/11/2021 09:17:25 Type 2 diabetes mellitus 81566297 E11.9 a1c done was 7 bc she has not gotten yet as she will get the a1c next month Hypothyroidism 62192664 E03.9 tsh is wnl and she is doing well Hypertensive disorder 38 482450 I10 here for recheck and doing ok overall Polymyalgi a rheumatica 26194516 M35.3 seeing her rheumatolo gist currently not on pred getting yuan inj for shoulder rotator cuff tear Body mass index 40+ - severely obese 733279484 Z68.43 long discussion Postmenopa usal bleeding 63666994 N95.0 relates has been having since last fall had one episode then and then another bleed a4 weeks ago [id number] Ted MohanValeria Nunez [facility] [address] [facility],[place] [address] 7 02/18/2022 13:56:23 02/18/2022 14:31:53 Hypertensive disorder 66570476 I10 here for recheck and doing ok overall Type 2 carissa betes mellitus 97860255 E11.9 a1c done is 5.6 and is doing great Hyperlipidemia 34005377 E78.5 will be checking next lab Active or passive immunization 574080860 Z23 UTD Depression screening 171 207559 Z13.31 postive PHQ2 today- Lots of stress at home, stays up all night sleeping all day Acute sinusitis 36241108 J01.90 we will treat History of depression 16 0118845 Z86.59 [id number] [facility] [address] [facility] [address],[place] [address] 04/15/2022 08:41:26 04/15/2022 16:26:16 Hypothyroidism 22063218 E03.8 will f/u with TSH recheck in two weeks Aphasia 28645346 R47.01 resolved [id number] [facility] [address] [facility] [address] [address] 08/22/2022 13:50:01 08/22/2022 15:44:28 Loss of appetite 40288665 R63.0 will start with lab work upagreed to thismay need US Type 2 carissa betes mellitus 00775729 E11.9 will also check A1c [id number] [facility] [address] [facility] [address] [address] 04/21/2023 10:52:01 04/21/2023 14:05:33 Body mass index 40+ - severely obese 558268325 Z68.43 discussed diet and exercises Polymyalgi a rheumatica 99092753 M35.3 stable Candidiasis of skin 4988 3006 B37.2 will start on combo therapy Cellulitis 310386565 L03 .311 start on Keflex [id number] [facility] [address] [facility],[place] [address] 07/15/2023 10:19:16 07/15/2023 15:28:34 Pneumonia 833846402 J17 will start on doxycyclin e and medrol Type 2 carissa betes mellitus 79642559 E11.9 stable Polymyalgi a rheumatica 66064390 M35.3 stable Body mass index 40+ - severely obese 131948974 Z68.43 discussed diet and exercises [id number] [facility] [address] [facility] [address] [address] 04/15/2024 09:12:24 04/15/2024 11:12:14 Candidiasis of skin 24244484 B37.2 will start on combo therapy Acute bronchitis 1441871 2 J20.8 will start on z-juan carlos and pred taper Candidiasis of vagina 72 921048 B37.31 use if needed after her abx usage Migraine 78596223 G43.90 9 needs refill [id number] [facility] [address] [facility] [address],[place] [address] 08/17/2024 09:30:02 08/17/2024 15:25:58 Acute urinary tract infection 860595200 N10 will set up with cipro (safe to use, no reaction previously , on levaquin)s tart on short course of pred Candidiasis of vagina 72 993573 B37.31 increased dose, longer course [id number] [facility] [address] [facility] [address] [address] 09/09/2024 13:51:47 09/09/2024 14:59:56 Pressure injury of buttock stage I 6457098988 2542402 L89.309 started a few Memory impairment 188257 006 R41.3 after stroke, complicati on due to stroke Nausea and vomiting 1691999 R11.2 agreed to trial something for nausea while we work her up for the dysphagia Dysphagia 79092635 R13.1 2 agreed to swallow study Health Concerns Section Related Observation LastModified by Organization Detai ls LastModified Time None Recorded Concern Status LastModified by Organization Details LastModified Time None Recorded Advance Directives Directive None Recorded Payers Encounter Date Sequence Insurance Name Policy Number Policy Novak Covered Member ID Novak Member ID Guarantor Name 04/21/2023 1 [place]ICARE [place]: [facility] Teachernow [facility] Minoo Anderson [id number] Minoo Anderson 04/21/2023 2 [facility] (MEDICARE SUPPLEMENT) Minoo Anderson [id number] Minoo Anderson 07/15/2023 1 [place] [employer] Minoo Anderson [id number] Minoo Anderosn 07/15/2023 2 [facility] (MEDICARE SUPPLEMENT) Minoo Anderson [id number] Minoo Anderson 04/15/2024 1 MEDICARE [place]: [facility] Minoo Anderson [id number] Minoo Anderson 04/15/2024 2 [facility] (MEDICARE SUPPLEMENT) Minoo Anderson [id number] Minoo Anderson 08/17/2024 1 [place]ICARE [place]: [facility] Minoo Anderson [id number] Minoo Anderson 08/17/2024 2 [facility] (MEDICARE SUPPLEMENT) Minoo Anderson [id number] Minoo Anderson 09/09/2024 1 MEDICARE [place]: [facility] Minoo Anderson [id number] Minoo Anderson 09/09/2024 2 [facility] (MEDICARE SUPPLEMENT) Minoo Anderson [id number] Minoo Anderson Notes Date Note Type Note Provider Name and Address Organization Details Recorded Time 3 text/html c/o rash under the breasts the patient has severe fungal rash under the breastthe patient reports she also has on her groincan use topical in both areaswill also start her on an oral medication for the severity of it the patient is doing well otherwisewill also start her on an abx due to inflammation and induration [facility] [address] [place] [address], [address], [facility] 04/21/2023 11:35:55 4 text/html c/o bronchitis symptoms The patient is participating in this appointment via telemedicine communication with a phone call/video calling service (Doxy)The patient consents to use of these platforms in place of an in-person appointment due to either sick symptoms the patient is presenting with or current office closure due to COVID exposure in order to keep our office staff and patients safe The patient presents to the office today with concerns of sick symptoms including cough, wheezing, chest tightness The symptoms started originally two weeks agoThe patient reports wheezing, sob with activity, chest tightness, productive cough with yellow mucusThe patient symptoms mainly involves the wheezing and cough Pertinent comorbidities include The patient symptoms are alleviated by rest, nothing over the counter has helped for longThe patient symptoms are exacerbated by activity and coughing fits The patient has tested for COVID-19 and the results was negative hx of pna, given age and symptoms will treat empiricallyreviewed allergies with patient also start on medrol for the inflammation of her lung tissues also reviewed the RSV vaccine with the patient [facility] [address] [place], [address], [facility] 07/15/2023 14:55:17 4 text/html c/o yeast infection, chest infection The patient is participating in this appointment via telemedicine communication with a phone call/video calling service (DoxVupen)The patient consents to use of these platforms in place of an in-person appointment due to either sick symptoms the patient is presenting with or current office closure due to COVID exposure in order to keep our office staff and patients safe the patient reports she had a stroke about a year agothe patient reports several events: the patient has a growth on her head (sees derm, had another removed before)the patient had a fall recently in the bath, doing fine, has a bruise (on ASA) no difficulties walking, using ice, told to monitorneeds refill of the butalbital for her headachesneeds preventative med for yeast infection after abx use needs refill of the nystatin cream will start on pred and z pakpatient has cough, chest congestion and wheezing, sob with activity, though not severewill update next week about symptoms [facility] [address] [place], [address], [facility] 04/15/2024 10:29:35 5 text/html The patient is participating in this appointment via telemedicine communication with a phone call/video calling service (Doxy)The patient consents to use of these platforms in place of an in-person appointment due to either sick symptoms the patient is presenting with or current office closure due to COVID exposure in order to keep our office staff and patients safe reviewed culture with herdiscussed options, pt safe to take cipro, no issues in the past only with the levaquin, and it's the only safe alt on there given her other allergies and the other abx are all IM inj which we do not have restart anti-fungal, high dose, longer coursepred for swelling and to prevent reaction to cipro keep area clean and dryavoid non cotton underwear [facility] [address] [place], [address], [facility] 08/17/2024 14:34:54 5 text/html f/u pressure ulcer of the right buttock pressure ulcer stage 1 buttock right sideswab takencont the doxy, switched out topicalhas cushion/donut for the buttock, avoid sitting on that area for ext peroids of time recommended swallow study for the nausea and difficulty swallowing keeping food downpt agreeswill set up with the anti nausea med as well in the meantime memory is related to stroke, most likely her baseline now, recommended another fu with neuro for further eval and newer scans [facility] [address] [place], [address], [facility] 09/09/2024 14:29:14 OBGyn Episode No OBEpisode recorded.
[2024-10-10 13:09] LABS: MANUAL DIFF FLAG NO
[2024-10-10 13:15] LABS: Basophils Absolute Auto 0.2 X10*3/uL (0.0-0.2); Eosinophils Absolute Auto 0.4 X10*3/uL (0.0-0.4); Eosinophils Percent Auto 5.1 % (0-4); Hematocrit 37.1 % (37.0-47.0); Hemoglobin 11.9 g/dl (12.0-16.0); Imm Gran Abs Auto 0.04 X10*3/uL (0.00-0.03); Imm Gran Pct Auto 0.5 % (0.0-0.4); Lymphocytes Absolute Auto 1.8 X10*3/uL (1.2-4.9); Lymphocytes Percent Auto 23.2 % (20-40); Mean Corpuscular HGB Conc 32.1 g/dl (31.0-35.0); Mean Corpuscular Hemoglobin 27.8 pg (27.0-33.0); Mean Corpuscular Volume 86.7 fL (80.0-98.0); Mean Platelet Volume 12.2 fL (9.4-12.3); Monocytes Absolute Auto 0.7 X10*3/uL (0.1-1.2); Monocytes Percent Auto 9.2 % (2-11); Neutrophils Absolute Auto 4.6 x10*3/uL (2.0-8.3); Platelet Count 222 X10*3/uL (160-400); Red Blood Count 4.28 X10*6/uL (4.20-5.50); Red Cell Distribution Width 14.5 % (11.0-16.0); White Blood Count 7.6 X10*3/uL (4.8-10.8)
[2024-10-10 13:35] LABS: Estimated Average Glucose 220 mg/dL; Hemoglobin A1C 312.5264 umol/L; Hemoglobin A1c % 9.3 % (<6.0); Total Hemoglobin (HGBA1C) 4017.4203 umol/L
[2024-10-10 14:05] LABS: Ferritin 188 ng/mL (10-250)
[2024-10-10 14:20] LABS: Folate 14.6 ng/mL (> or = 4.0); Vitamin B12 524 pg/mL (200-900)
[2024-10-10 14:30] LABS: Anion Gap 14 (12-20)
[2024-10-10 14:32] LABS: Alanine Aminotransferase 22 U/L (0-31); Albumin Level 3.9 g/dL (3.5-5.0); Alkaline Phosphatase 76 U/L (39-117); Aspartate Amino Transferase 53 U/L (5-31); Bilirubin Total 1.7 mg/dL (0.0-1.0); Blood Urea Nitrogen 10 mg/dL (9-16); Calcium 9.8 mg/dL (8.4-10.2); Carbon Dioxide 27 mmol/L (22-29); Chloride 101 mmol/L (96-108); Estimated Glomerular Filt Rate > 60; Glucose Random 224 mg/dL (60-115); Iron 65 mcg/dL (30-160); Percent Iron Saturation 25 % (15-50); Potassium 3.3 mmol/L (3.3-5.1); Sodium 139 mmol/L (135-145); Total Iron Binding Capacity 259 mcg/dL (228-428); Total Protein 6.9 g/dL (6.5-8.0); Unsaturated Iron Binding 194 ug/dL
== END 2024-10-10 10:47 | disposition home or self-care (01) ==
LOC: HO.MANLDS 10:46
PROVIDERS: Visit Provider Physician Assistant
DX: E11.9 Type 2 diabetes mellitus without complications (principal); E03.9 Hypothyroidism, unspecified; D64.9 Anemia, unspecified
CPT/HCPCS: 36415; 80053; 82607; 82728; 82746; 83036; 83540; 84436; 84443; 85025

== ENCOUNTER 2025-01-12 14:17 | Emergency (ER) | payer MEDICARE, OTHER, SELFPAY ==
--- NOTE | ~2025-01-12 | XR_ITS ---
CLINICAL HISTORY: fall 3 wks ago, pain 5 view left knee Comparison: None provided Findings: Osteopenia. No acute fracture. Moderate tricompartmental osteoarthritis with joint space narrowing pronounced in the medial and patellofemoral compartments. No joint effusion. No radiopaque foreign body. Anterior soft tissue swelling. IMPRESSION: No acute fracture. This document has been electronically signed by: Max Arias MD on 01/12/2025 18:28:53
--- NOTE | ~2025-01-12 | XR_ITS ---
CLINICAL HISTORY: fall, pain x 3 weeks 3 view, pelvis and left hip Comparison: None provided Findings: No acute fracture or malalignment. Degenerative changes throughout the SI joints, pubic symphysis and hips bilaterally. The soft tissues are unremarkable. IMPRESSION: No acute findings. This document has been electronically signed by: Max Arias MD on 01/12/2025 18:33:24
[2025-01-12 14:25] VITALS: BP 110/70; PULSE 66; O2SAT 96
[2025-01-12 14:29] VITALS: BP 106/56; PULSE 95; RESP 16; O2SAT 99; BMI 42.9
--- NOTE | 2025-01-12 14:41 | PC.NURSE ---
Pt roomed and changed and placed on full monitor- NSR No ectopy. VSS Left groin pain radiating to back. Pt denies N/V/D
--- OUTSIDE RECORDS SUMMARY | 2025-01-12 15:05 | XMS_ITS | Data Portability ---
Author Organization [facility], Telehealth Patient Home Address [address] [place] [address] Assessment Encounter Date Assessment Date Assessment LastModified [...] Organization Details Last Modified Time Details Appointments None recorded. Lab hemoglobin A1c, QN, blood 2024 025 [facility], [address] [place] [address], [address], 13:46:41 CMP, serum or plasma 2024 025 [facility], [address] [place] [address], [address], 10:35:37 TSH + free T4, serum 2024 025 [facility], [address] [place] [address], [address], 13:46:41 iron + TIBC + ferritin, serum 2024 025 [facility], [address] [place] [address], [address], 10:35:37 CBC w/ auto diff 2024 025 [facility], [address] [place] [address], [address], 10:35:37 vitamin B12 + folate, serum or blood 2024 025 [facility], [address] [place] [address], [address], 10:35:37 culture, wound 2024 025 [facility], [address] [place] [address], [address], 18:21:03 Referral None recorded. Procedures None recorded. Surgeries None recorded. Imaging barium swallow study 2024 [facility] - Outpatient Imaging Central Scheduling (Not Breast), [address] [place] [address], [address], 08:15:01 Medication Orders mupirocin 2 % topical ointment 2024 025 [facility]/Pharmacy #2024, [address] [place], [address], 14:14:26 ondansetro n 8 mg disintegra ting tablet 2024 025 [facility]/Pharmacy #2024, [address] [place], [address], 14:18:43 ciprofloxa ela 500 mg tablet 2024 025 [facility]/Pharmacy #2024, [address] [place], [address], 5 14:13:12 prednisone 10 mg tablet 2024 025 [facility] [address] [place] [address], [address], 5 14:13:00 fluconazol e 200 mg tablet 2024 025 [facility] [address] [place] [address], [address], 5 10:17:20 butalbital -acetamino phen-caffe ine 50 mg-325 mg-40 mg tablet 2023 [facility] [address] [place] [address], [address], 4 10:26:10 nystatin 100,000 unit/gram topical cream 2023 [facility] #2024, [address] [place] [address], [address], 4 10:29:44 fluconazol e 150 mg tablet 2023 [facility] [address] [place] [address], [address], 5 10:17:10 Zithromax Z-Juan Carlos 250 mg tablet 2023 [facility]/Pharmacy #2024, [address] [place] [address], [address], 5 14:23:26 prednisone 10 mg tablet 2023 [email or web address] [facility]Pharmacy #2024, [address] [place] [address], [address], 5 14:12:58 doxycyclin e hyclate 100 mg capsule 2023 024 [email or web address], [address] [place], [address], 5 09:58:01 Medrol (Juan Carlos) 4 mg tablets in a dose pack 2023 024 [email or web address], [address] [place], [address], 5 14:24:19 Patient TargetsNo targets recorded. Patient InstructionsNo instructions recorded. Reason for Referral None Reported. Results Created Date Observation Date Name Description Value Unit Range Abnormal Flag Note LastModifiedBy Organization Detail LastModifiedTime 09/16/1909/16/2023 trans -thor acic echoc ardio gram (TTE) (PROC ) No observ ation record ed. [email or web address] [facility] [place] [address], [place], [address], 09/16/2023 15:08:27 Result Notes None recorded. Problems Name Problem SNOMED Code Status Onset Date Resolution Date Notes Provider Name and Address Organization Details Recorded Time Basal cell carcinoma of scalp 408613159 Active 2019 Not Available [facility] 1 20:36:42 Osteoarth ritis of shoulder region 68335253 Active 2019 Not Available [facility] 1 20:36:42 Aphasia 40064094 Active 2021 FOREIGN ZEPEDA [address] [place], [address], [facility] 2 12:16:17 Loss of appetite 18632547 Active 2022 FOREIGN ZEPEDA [address] [place], [address], [facility] 3 14:12:55 Liver function tests outside reference range 265399380 Active 2022 FOREIGN ZEPEDA [address] [place], [address], [facility] 3 14:04:20 Lumbago with sciatica 869406501 Active 2022 Ted Nunez, DO [address] [place] [address], [address], [facility] 3 11:05:42 Lumbago with sciatica 802672688 Active 2022 Ted Nunez, DO [address] [place] [address], [address], [facility] 3 11:05:49 Edema of lower extremity 591645468 Active 2022 FOREIGN ZEPEDA [address] [place] [address], [address], [facility] 3 16:05:56 Candidias is of skin 20495243 Active 2022 FOREIGN ZEPEDA [address] [place] [address], [address], [facility] 3 11:20:50 Celluliti s 777464740 Active 2022 FOREIGN ZEPEDA [address] [place] [address], [address], [facility] 3 11:22:19 Cerebrova scular accident 797231301 Active 2022 FOREIGN ZEPEDA [address] [place] [address], [address], [facility] 3 11:29:13 Transient cerebral ischemia 747718508 Active 2022 FOREIGN ZEPEDA [address] [place] [address], [address], [facility] 3 11:29:42 Pneumonia 222196205 Active 2023 FOREIGN ZEPEDA [address] [place] [address], [address], [facility] 4 14:48:40 Candidias is of vagina 84990121 Active 2023 FOREIGN ZEPEDA [address] [place] [address], [address], [facility] 4 10:21:06 Migraine 71535186 Active 2023 FOREIGN ZEPEDA [address] [place] [address], [address], [facility] 4 10:25:45 Dysuria 18096604 Active 2024 FOREIGN ZEPEDA [address] [place] [address], [address], [facility] 5 12:52:38 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 a pneumonia e 478342697 Active 2024 FOREIGN ZEPEDA [address] [place] [address], [address], [facility] 5 16:46:53 Pressure injury of buttock stage I 470906994876 72402 Active 2024 FOREIGN ZEPEDA [address] [place] [address], [address], [facility] 5 14:24:33 Memory impairmen t 223498140 Active 2024 FOREIGN ZEPEDA [address] [place] [address], [address], [facility] 5 14:06:33 Nausea and vomiting 06661945 Active 2024 FOREIGN ZEPEDA [address] [place] [address], [address], [facility] 5 14:15:24 Dysphagia 47881085 Active 2024 FOREIGN ZEPEDA [address] [place] [address], [address], [facility] 5 14:17:02 Anemia 416643371 Active 2024 FOREIGN ZEPEDA [address] [place] [address], [address], [facility] 5 10:33:03 Atrial fibrillat ion 83061188 Active 2024 FOREIGN ZEPEDA [address] [place], [address], [facility] 5 16:35:22 Acute celluliti s Active 2024 FOREIGN ZEPEDA [address] [place], [address], [facility] 5 12:30:09 Candidal intertrig o 977722841 Active 2024 Ted KimberleeValeria Nunez, [address] [place], [address], [facility] 5 13:04:23 Hypothyro idism 75716753 Active 2017 Not Available [facility] 20:36:42 History of depressio n 737205773 Active 2017 Not Available [facility] 20:36:42 Hypertens nirali disorder 33674604 Active 2017 Not Available [facility] 20:36:42 Hyperlipi demia 04312268 Active 2017 Not Available [facility] 20:36:42 Polymyalg ia rheumatic a 43293706 Active 2017 Not Available [facility] 20:36:42 Lyme disease 09483779 Active 2017 Not Available [facility] 20:36:42 Type 2 diabetes mellitus 90072911 Active 2017 Not Available [facility] 20:36:42 Problem Notes None recorded. Procedures Surgical History Date Name Laterality Status Provider Name and Address Organization Details Recorded Time 5 WOUND CARE completed FOREIGN ZEPEDA [address] [place], [address], [facility] 09/09/2024 14:22:26 Imaging Results None recorded. Procedure Notes None recorded. Medical Equipment None Reported. Allergies Allergen ID Allergen Name Allergen Category Reaction Reaction Severity Criticality Documentation Date Start Date Code Code System Note Provider Name and Address Organization Details Recorded Time 1200 Product containin g penicilli n (product) medicatio n rash Not available Not available 11/06/2017 39090 8001 SNOMED Veronika amaya [facility] 8 16:05:56 1201 Substance with sulfonami de structure and antibacte rial mechanism of action (substanc e) medicatio n Not available Not available Not available 11/06/2017 25895 8003 SNOMED Veronika amaya [facility] 8 16:06:08 3604 Levaquin medicatio n other moderate Not available 05/31/2019 70593 2 RxNorm Ted Nunez, DO [address] [place], [address], [facility] 9 13:21:51 Medications Name Sig Start Date Stop Date Status Note LastModified by Organization Details LastModified Time pioglitazon e 15 mg tablet Take 1 tablet(s) every day by oral route for 30 days. 2024 active Not Available Not Available Not Avai lable levothyroxi ne 175 mcg tablet active Not Available Not Available Not Available levothyroxi [...] Not Available doxycycline hyclate 100 mg capsule Take 1 capsule twice a day by oral route for 10 days. 2024 active Not Available Not Available Not Avai lable paroxetine 10 mg tablet Take 1.5 tablets every day by oral route. 08/22 completed Not Available Not Available Not Available torsemide 20 mg tablet TAKE 2 TABLETS BY MOUTH EVERY DAY 2024 active Not Available Not Available Not Avai lable citalopram 40 mg tablet TAKE 1 TABLET BY MOUTH EVERY DAY 2024 active Not Available Not Available Not Avai lable cefpodoxime 200 mg tablet Take 1 tablet every 12 hours by oral route for 5 days. 08/17 completed Not Available Not Available Not Available azithromyci n 250 mg tablet TAKE 2 TABLETS BY MOUTH TODAY, THEN TAKE 1 TABLET DAILY FOR 4 DAYS DIRECTED 08/17 completed Not Available Not Available Not Available ofloxacin 0.3 % eye drops 08/09 completed Not Available Not Available Not Available fluconazole 150 mg tablet TAKE 1 TABLET BY MOUTH EVERY DAY FOR 7 DAYS active Not Available Not Available No [...] Not Available Not Available No t Available clotrimazol e-betametha sone 1 %-0.05 % topical cream APPLY TO AFFECTED AREA TWICE A DAY FOR 2 WEEKS TOPICALLY IN THE MORNING AND EVENING active Not Available Not Available No t Available misoprostol 200 mcg tablet Take 1 tablet by mouth twice a day 08/09 completed Not Available Not Available Not Available levothyroxi ne 150 mcg tablet Take 1 tablet(s) every day by oral route. 2024 active Not Available Not Available Not Avai lable gabapentin 300 mg capsule 11/09 completed Not [...] BY MOUTH EVERY DAY FOR 14 DAYS 04/07 /2025 completed Not Available Not Available Not Available metoprolol succinate ER 25 mg tablet,exte nded release 24 hr TAKE 1 TABLET BY [...] propionate 50 mcg/actuati on nasal spray,suspe nsion [place] 1 spray every day by intranasa l [...] TAKE 1 CAPSULE BY MOUTH EVERY DAY 2024 active Not Available Not Available Not Avai lable Boostrix Tdap 2.5 Lf unit-8 mcg-5 Lf/0.5 [...] Not Available Vitals Date Recorded Body height Heart rate Oxygen saturation Oxygen saturation in Arterial blood by Pulse oximetry Systolic And Diastolic Provider Name and Address Organization Details Last Updated DateTime 5 167.64 cm 113 /min 99 % 99 % 128/60 mm[Hg] [facility] 5 13:58:59 Date Recorded Body height Body mass index (BMI) Body weight Heart rate Oxygen saturation Oxygen saturation in Arterial blood by Pulse oximetry Systolic And Diastolic Provider Name and Address Organization Details Last Updated DateTime 5 167.64 cm 46.5 kg/m2 974897. 24 g 103 /min 94 % 94 % 134/78 mm[Hg] Daysi Varma [facility] 5 10:06:21 Social History Question Answer Notes LastModified by Organizat ion Details LastModified Time Tobacco Smoking Status Never Smoker Not Available [facility] 05/08/2020 03:36:24 What Was The Date Of Your Most Recent Tobacco Screening? 10/10/2024 [email or web address] Information not available 10/10/2024 Sex: Unknown Functional Status Question Answer Note LastModified by Organization D etails LastModified Time Do you or have you ever used any other forms of tobacco or nicotine? No [email or web address] Information not available 09/09/2024 Mental Status None recorded. Family History Nothing Reported. Medical History No medical history recorded. Gynecological HistoryNo gynecological history recorded. Obstetrics History GPAL:G 0 P 0 0 0 0 Immunizations Vaccine Type Date Status Note Provider Nam e and Address Organization Details Recorded Time Influenza, split virus, quadrivalent, preservative 03/17/20 18 completed Karen amaya [facility] 04/04/2020 10:08:50 Tdap 03/17/20 18 completed Karen amaya [facility] 04/04/2020 10:08:50 COVID-19, mRNA, LNP-S, PF, 30 mcg/0.3 mL dose 10/04/19 21 completed Eri amaya [facility] 02/05/2021 10:16:05 COVID-19, mRNA, LNP-S, PF, 30 mcg/0.3 mL dose 10/27/19 21 completed Eri amaya [facility] 02/05/2021 10:16:09 Influenza, split virus, quadrivalent, preservative 04/24/20 21 completed Ted Nunez, DO [address] [facility], [place], [address], [facility] 04/25/2021 16:51:57 COVID-19, mRNA, LNP-S, PF, 30 mcg/0.3 mL dose 04/30/20 21 completed Eri amaya [facility] 05/03/2021 08:21:32 pneumococcal polysaccharide PPV23 04/25/20 14 completed Karen amaya [facility] 04/04/2020 10:08:50 zoster live 06/05/20 16 completed Karen amaya [facility] 04/04/2020 10:08:50 Td(adult) unspecified formulation 09/04/19 12 completed Karen maaya [facility] 04/04/2020 10:08:50 Influenza, split virus, quadrivalent, preservative 03/21/20 20 completed Karen amaya [facility] 04/04/2020 10:08:50 Pneumococcal conjugate PCV 13 05/29/20 20 completed Ted Nunez [address], [address], [facility] 05/31/2020 17:41:59 Past Encounters Encounter ID Performer Location Encounter Start Date Encounter Closed Date Diagnosis/Indication Diagnosis SNOMED-CT Code Diagnosis ICD10 Code Diagnosis Note [id number] Ted Nunez [facility] [address],[place] [address] 11/09/2017 10:23:16 11/09/2017 15:23:04 Chronic cough 36855023 R05 Impaired f asting glycemia 623569320 R73.01 to check RBS and A1C today in house Hypothyroidism 87315264 E03.9 check labs today, prior to making dose decisions [id number] Ted Nunez DO [facility] [address],[place] [address] 11/16/2017 10:40:43 11/16/2017 16:33:22 Type 2 diabetes mellitus 97061597 E11.9 Must focus on healthy dietary choices and begin walking program, pt. agrees, defers meds at this time Hypothyroidism 40443441 E03.9 increase levoxyl to 125 mcg 1-1/2 tabs q Mon, Wed & Fri, 1 tab rest of days recheck levels in 3 weeks Hypercholesterolemia 136 24859 E78.00 mild, will recheck with diet, exercise improvemen ts [id number] Ted Nunez [facility] [address],[place] [address] 12/28/2017 10:15:09 12/28/2017 11:57:41 Hypothyroidism 23651484 E03.9 Pre-existi ng type 2 diabetes mellitus 626028144 E11.9 discuss appropriat e diet Essential hypertension 25394273 I10 stable [id number] Ted Nunez [facility] [address] [facility],[place] [address] 04/28/2018 09:52:05 04/30/2018 09:30:57 Adult health examination 971507430 Z00.00 History of depression 16 8382389 Z86.59 stable with current dose Paxil Type 2 carissa betes mellitus 49159005 E11.9 Must focus on healthy dietary choices and begin walking program, pt. agrees, defers meds at this time A1C 6.6 Hypertensive disorder 38 997774 I10 stable Hypothyroidism 17909101 E03.9 TSH > 8, nml Free T4-follow Hyperlipidemia 67201540 E78.2 Pt. refuses medication Polymyalgi a rheumatica 75747914 M35.[address] Chau[facility] Body mass index 40+ - severely obese 610752631 Z68.43 [id number] Ted Nunez [facility] [address] [facility],[place] [address] 08/09/2018 10:00:24 08/09/2018 14:08:52 Type 2 diabetes mellitus 53645118 E11.9 needs a1c Hypothyroidism 19325347 E03.9 will check with tsh Hypertensive disorder 38 130076 I10 here for recheck and doing ok overall Polymyalgi a rheumatica 34293425 M35.3 seeing her rheumatolo gist Atypical pneumonia 96207 6009 J18.9 [id number] Ted Nunez [facility] [address] [facility],[place] [address] 11/10/2018 10:55:50 11/10/2018 11:48:22 Type 2 diabetes mellitus 27941042 E11.9 needs a1c done as she has a increase in the a1c at 7.0 this winter Hypothyroidism 13146217 E03.9 tsh is wnl and she is doing well Hypertensive disorder 38 729845 I10 here for recheck and doing ok overall Osteopenia 776417486 M85 .80 will need a bone scan test Hepatitis C screening 41 6064420 Z11.59 will check lab [id number] Ted Nunez [facility] [address] [facility],[place] [address] 02/11/2019 10:20:49 02/11/2019 10:44:57 Type 2 diabetes mellitus 49224063 E11.9 needs a1c done as she has a decrease in the a1c at 6.7 this summer Hypothyroidism 08381019 E03.9 tsh is wnl and she is doing well Hypertensive disorder 38 369783 I10 here for recheck and doing ok overall Pneumonia 036594577 J18. 9 azithromyc in for a clinical pneumonia infection [id number] Ted Nunez [facility] [address] [facility],[place] [address] 05/02/2019 10:24:44 05/02/2019 11:31:37 Body mass index 40+ - severely obese 399041227 Z68.43 Atypical chest pain 1025 73495 R07.89 ekg reassuring Orthopnea 53314443 R06.0 1 Upper resp iratory infection 22488775 J06.9 ? flu with low grade fever although sx now 1-2 weeks well past treatment range [id number] Ted Nunez [facility] [address] [facility],[place] [address] 05/25/2019 13:20:36 05/25/2019 14:33:41 Type 2 diabetes mellitus 25602845 E11.9 needs a1c done as she has a decrease in the a1c at 6.7 this summer Hypothyroidism 74088583 E03.9 tsh is wnl and she is doing well Hypertensive disorder 38 987152 I10 here for recheck and doing ok overall Pneumonia 885085143 J18. 9 azithromyc in for a clinical pneumonia infection Contusion of lower leg 00009263 S80.10XA will elevate and heat to the areas of small hematomas [id number] Ted Nunez [facility] [address] [facility],[place] [address] 09/02/2019 10:15:33 09/02/2019 11:28:54 Hypothyroidism 18419697 E03.9 tsh is wnl and she is doing well Type 2 carissa betes mellitus 04896549 E11.9 needs a1c done bc she has not gotten yet as she has a decrease in the a1c at 6.7 this summer Hypertensive disorder 38 921697 I10 here for recheck and doing ok overall Pneumonia 089183091 J18. 9 azithromyc in for a clinical pneumonia infection [id number] Ted Nunez DO [facility] [address] [facility],[place] [address] 11/25/2019 10:59:50 11/25/2019 11:22:59 Adult health examination 516306007 Z00.00 Screening for cardiovascular system disease 071022014 Z13.6 Screening for malignant neoplasm of colon 218778487 Z12.11 refuses Screening for osteoporosis 443171112 Z13.820 Screening mammography 24 579213 Z12.31 Type 2 carissa betes mellitus 55649251 E11.9 needs a1c done bc she has not gotten yet as she has a decrease in the a1c at 6.7 this summer Hypertensive disorder 38 804349 I10 here for recheck and doing ok overall [id number] Ted Nunez DO [facility] [address] [facility], [place] [address] 04/04/2020 10:01:36 04/04/2020 10:49:11 Hypertensive disorder 26852438 I10 here for recheck and doing ok overall Hypothyroidism 89415653 E03.9 tsh is wnl and she is doing well Hyperlipidemia 12574383 E78.5 will be checking next lab Type 2 carissa betes mellitus 70625102 E11.9 a1c done was 7 bc she has not gotten yet as she will get the a1c next month [id number] Ted Nunez DO [facility] [address] [facility], [place] [address] 07/17/2020 08:48:31 07/17/2020 11:44:16 Osteoarthritis of shoulder region 39449583 M19.019 following ortho for this and rheum Hypertensive disorder 38 901604 I10 here for recheck and doing ok overall Type 2 carissa betes mellitus 06946036 E11.9 a1c done was 7. 7 which is worse she is noted to have not been compliant with diet relates she will try as we are at the point she will need treatment she understand s and will chk a1c in 3 mo Hypothyroidism 43623881 E03.9 tsh was wnl and she is doing well symptomati jannette but she will need more tsh test as she is overdue [id number] Ted Nunez [facility] [address] [facility] [address] [address] 10/12/2020 10:03:39 10/12/2020 10:46:47 Hypertensive disorder 79409061 I10 here for recheck and doing ok overall Type 2 carissa betes mellitus 07881426 E11.9 a1c done was 7 bc she has not gotten yet as she will get the a1c next month Hypothyroidism 34401462 E03.9 tsh is wnl and she is doing well [id number] Ted Nunez [facility] [address] [facility] [address] 02/06/2021 10:09:57 02/06/2021 11:44:33 Hypothyroidism 91258574 E03.9 tsh is wnl and she is doing well Type 2 carissa betes mellitus 56707899 E11.9 a1c done was 7 bc she has not gotten yet as she will get the a1c next month Hypertensive disorder 38 289224 I10 here for recheck and doing ok overall Polymyalgi a rheumatica 41546119 M35.3 seeing her rheumatolo gist Body mass index 40+ - severely obese 663362210 Z68.43 [id number] Ted Nunez [facility] [address] [facility] [address] 05/24/2021 10:09:02 05/24/2021 16:12:17 Hypertensive disorder 68997612 I10 here for recheck and doing ok overall Hypothyroidism 84794580 E03.9 tsh is wnl and she is doing well Type 2 carissa betes mellitus 41518297 E11.9 a1c done was 7 bc she has not gotten yet as she will get the a1c next month [id number] Ted Nunez [facility] [address] [facility] [address] 09/10/2021 14:07:21 09/11/2021 09:17:25 Type 2 diabetes mellitus 92025344 E11.9 a1c done was 7 bc she has not gotten yet as she will get the a1c next month Hypothyroidism 74499110 E03.9 tsh is wnl and she is doing well Hypertensive disorder 38 358110 I10 here for recheck and doing ok overall Polymyalgi a rheumatica 50036801 M35.3 seeing her rheumatolo gist currently not on pred getting yuan inj for shoulder rotator cuff tear Body mass index 40+ - severely obese 001543313 Z68.43 long discussion Postmenopa usal bleeding 73453266 N95.0 relates has been having since last fall had one episode then and then another bleed a4 weeks ago [id number] Ted Nunez [facility] [address] [facility], [place] [address] 02/18/2022 13:56:23 02/18/2022 14:31:53 Hypertensive disorder [id number] I10 here for recheck and doing ok overall Type 2 carissa betes mellitus 11500235 E11.9 a1c done is 5.6 and is doing great Hyperlipidemia 99968025 E78.5 will be checking next lab Active or passive immunization [id number] Z23 UTD Depression screening 171 306963 Z13.31 postive PHQ2 today- Lots of stress at home, stays up all night sleeping all day Acute sinusitis 75431981 J01.90 we will treat History of depression 16 5287499 Z86.59 [id number] Ted Nunez [facility] [address] [facility], [place] [address] 04/15/2022 08:41:26 04/15/2022 16:26:16 Hypothyroidism 69105485 E03.8 will f/u with TSH recheck in two weeks Aphasia 15454091 R47.01 resolved [id number] Ted Nunez [facility] [address] [facility], [place] [address] 08/22/2022 13:50:01 08/22/2022 15:44:28 Loss of appetite 60643847 R63.0 will start with lab work upagreed to thismay need US Type 2 carissa betes mellitus 34744612 E11.9 will also check A1c [id number] Ted Nunez [facility] [address] [facility],[place] [address] 04/21/2023 10:52:01 04/21/2023 14:05:33 Body mass index 40+ - severely obese 404272549 Z68.43 discussed diet and exercises Polymyalgi a rheumatica 49200741 M35.3 stable Candidiasis of skin 4988 3006 B37.2 will start on combo therapy Cellulitis 668920061 L03 .311 start on Keflex [id number] Ted Nunez [facility] [address] [facility],[place] [address] 07/15/2023 10:19:16 07/15/2023 15:28:34 Pneumonia 752568478 J17 will start on doxycyclin e and medrol Type 2 carissa betes mellitus 69390140 E11.9 stable Polymyalgi a rheumatica 47806615 M35.3 stable Body mass index 40+ - severely obese 275451037 Z68.43 discussed diet and exercises [id number] Ted Nunez [facility] [address] [facility],[place] [address] 04/15/2024 09:12:24 04/15/2024 11:12:14 Candidiasis of skin 38476400 B37.2 will start on combo therapy Acute bronchitis 2109993 2 J20.8 will start on z-juan carlos and pred taper Candidiasis of vagina 72 143375 B37.31 use if needed after her abx usage Migraine 36331104 G43.90 9 needs refill [id number] Ted Nunez [facility] [address] [facility],[place] [address] 08/17/2024 09:30:02 08/17/2024 15:25:58 Acute urinary tract infection 680681445 N10 will set up with cipro (safe to use, no reaction previously , on levaquin)s tart on short course of pred Candidiasis of vagina 72 195298 B37.31 increased dose, longer course [id number] Ted Nunez DO [facility] Internal [facility] [address] [facility],[place] [address] 09/09/2024 13:51:47 09/09/2024 14:59:56 Pressure injury of buttock stage I [id number] 7616173 L89.309 started a few Memory impairment 775480 006 R41.3 after stroke, complicati on due to stroke Nausea and vomiting 1692 1999 R11.2 agreed to trial something for nausea while we work her up for the dysphagia Dysphagia 02106296 R13.1 2 agreed to swallow study [id number] Ted Nunez DO [facility] [address] [facility],[place] [address] 10/10/2024 09:40:32 10/10/2024 10:42:42 Type 2 diabetes mellitus 91299600 E11.9 stable Body mass index 40+ - severely obese 330078980 Z68.43 discussed diet and exercises Cerebrovas cular accident 185134419 I63.9 stable Hypertensive disorder 38 356839 I10 134/78 L arm Hypothyroidism 45760050 E03.8 dropped down to 150 mcg Transient cerebral ischemia 965472136 G45.9 stable Anemia 064741838 D64.9 will set up with recheck blood work Health Concerns Section Related Observation LastModified by Organization Detai ls LastModified Time None Recorded Concern Status LastModified by Organization Details LastModified Time None Recorded Advance Directives Directive None Recorded Payers Insurance Date Sequence Insurance Name Policy Number Policy Novak Covered Member ID Novak Member ID Guarantor Name 12/10/2024 1 [place] [employer] Minoo Anderson [id number] Minoo Anderson 10/08/2024 2 [facility] (MEDICARE SUPPLEMENT) Minoo Anderson [id number] Minoo Anderson Notes Date Note Type Note Provider Name and Address Organization Details Recorded Time 4 text/html c/o bronchitis symptoms The patient [...] vaccine with the patient FOREIGN ZEPEDA [address] [place], [address], [facility] 07/15/2023 14:55:17 4 text/html c/o [...] next week about symptoms FOREIGN ZEPEDA [address] [facility], [place], [address], [facility] 04/15/2024 10:29:35 5 text/html The [...] dryavoid non cotton underwear FOREIGN ZEPEDA [address] [facility], [place], [address], [facility] 08/17/2024 14:34:54 5 text/html f/u [...] eval and newer scans FOREIGN ZEPEDA [address] [facility], [place], [address], [facility] 09/09/2024 14:29:14 5 text/html hospital d/c the patient was admitted [...] was increased on her glipizide 10 mg recheck CHARLEE MCMILLAN, FOREIGN [address] [facility], [place], [address], [facility] 10/10/2024 10:38:24 OBGyn Episode No OBEpisode recorded.
--- NOTE | 2025-01-12 15:23 | ED_ITS ---
HPI - General Adult General Chief complaint: Back Pain/Injury Stated complaint: PER EMS GROIN PAIN, CONSTIPATION X2 DAYS Time Seen by Provider: 01/12/25 15:16 Source: patient, family, RN notes reviewed and old records reviewed Mode of arrival: ambulatory Limitations: no limitations History of Present Illness ED Provider: Zelalem HPI narrative: Patient is a 79-year-old female presenting to the emergency department with complaint of left hip pain for the past 3 weeks. States that she was seen at [facility] but had imaging of her head, did not have imaging of her hip or pelvis at that time. Also complaining of left knee pain which is new. She states that while she has been waiting she remembered a fall onto her left side which occurred prior to onset of symptoms which she did not mention when at [facility]. Denies any saddle anesthesia or bowel or bladder incontinence, fevers. Denies any dysuria, frequency, hematuria or other urinary symptoms. Pain worsens with ambulation. MD complaint: hip and knee pain Onset (ago): week(s) Related Data Previous Rx's ?Medication ?Instructions ?Recorded cefuroxime axetil 250 mg tablet 250 mg PO BID 7 days # 14 tabs 01/16/25 Allergies Allergy/AdvReac Type Severity Reaction Status Date / Time Penicillins Allergy Intermediate Hives Verified 01/12/25 14:33 Sulfa (Sulfonamide Allergy Intermediate Hives Verified 01/12/25 14:33 Antibiotics) Review of Systems 2 Review of Systems: As per HPI Yes all other systems are reviewed and are negative Constitutional: Constitutional: Reports as per HPI [facility] Social History Social History Substance Use Type: Marijuana Physical Exam ED Vital Signs: Vital Signs - 24 hr 01/12/25 14:29 01/12/25 19:58 Temperature 98.7 F Pulse Rate 95 89 Respiratory Rate 16 18 Blood Pressure 106/56 L 109/55 L Pulse Oximetry 99 99 Oxygen Delivery Method Room Air Room Air BMI result Body Mass Index 42.9 Vital signs have been reviewed and appear to be correct. Blood pressure normal. Heart rate normal. Respiratory rate normal. Temperature normal. Oxygen saturation normal. Const General: cooperative, healthy appearing and no acute distress Orientation/consciousness: oriented to person, oriented to place, oriented to time and patient oriented x3 Limitations: no limitations HENMT Head: Yes normocephalic and Yes atraumatic Ears: external ears normal General nose exam: Normal external nose present Face and sinus: Yes face symmetric Mouth: oropharynx normal and moist mucous membranes Throat: Yes uvula midline Eyes Pupils: Equal, round and reactive pupils present Neck Neck: Yes normal visual inspection and Yes supple Resp Effort & Inspection: normal respiratory effort and able to speak in complete sentences Auscultation: clear to auscultation bilaterally Cardio Rate: regular rate Rhythm: regular rhythm Heart sounds: S1 normal heart sound present and S2 normal heart sound present GI Palpation (GI): Soft to palpation and nontender Auscultation: normoactive bowel sounds General: Yes no CVA tenderness Back/Spine/Pelvis Back: no CVA tenderness Pelvis: pain with lateral compression Skin General skin exam: elasticity normal and turgor normal Neuro General: oriented to person, oriented to place, oriented to time, patient oriented x3, moves all extremities, no focal motor deficits and CN's II-XI intact bilaterally Cranial nerves: Yes Equal, round and reactive pupils present Cognition (Neuro): normal cognition Extrem General: Yes full ROM, Yes no pedal edema and Yes no calf tenderness Left lower extremity: hip/thigh Details: normal to inspection, tenderness Location: of the hip Location: laterally and of the proximal upper leg Location: laterally and normal ROM; no ecchymosis and no deformity and knee Details: normal to inspection and abnormal ROM (limited due to pain, held in flexion at 90 degrees) Psych Mental Status: mental status grossly normal Affect: normal affect Thought process: Normal thought process present Course Course Course Narrative: 01/16/25 0929 FOREIGN Butt: Urine culture grew >100k e coli. Resistant to ampicillin, ciprofloxacin. Sensitive to cefazolin, cefepime, ceftriaxone, gentamicin, Macrobid, Bactrim. Called and spoke with patient. Ceftin sent to pharmacy for treatment. Advised to return with any new or worsening symptoms. Medications Administered Discontinued Medications Generic Name Dose Route Start Last Admin Trade Name Arleen PRN Reason Stop Dose Admin Acetaminophen 975 mg 01/12/25 19:45 01/12/25 19:49 Acetaminophen 325 Mg Tablet PO 01/12/25 19:46 975 mg ONCE ONE Administration Oxycodone HCl 5 mg 01/12/25 15:58 01/12/25 16:16 Oxycodone Hcl Immed Release 5 Mg Tablet PO 01/12/25 15:59 5 mg ONCE ONE Administration Medical Decision Making Medical Decision Making [facility] Narrative: Patient is a 79-year-old female presenting to the emergency department with complaint of left hip pain for the past 3 weeks. On exam patient is awake, A+Ox3, VS WNL, afebrile, normal neurological exam without focal deficits, physical exam findings as above. Given reported symptoms and physical exam findings, initial differential includes but is not limited to left hip strain, sprain, fracture, left knee strain, sprain, fracture. Patient signed out to FOREIGN Baker pending imaging results. Sign-out was given to me pending x-rays, x-rays were unremarkable. Patient requesting more pain medication, she already received oxycodone 5 mg orally. Will medicate with Tylenol. It appears that patient's blood work clotted, unable to run the CBC. I discussed this with patient, she becomes very tearful, she states that she does not want to have this performed. I discussed with patient that we are unable to rule out any infection or anemia, she states that she feels well other than the pain that she is having in her leg. She states that staying here in the emergency room is only making her leg pain worse as the beds are not comfortable for her. She is ambulatory with steady gait. She declines wanting to be evaluated by Physical therapy as she is able to walk around the emergency room, has been to the bathroom multiple times without difficulty. She has no urinary symptoms. Urine does appear to have trace leuk esterases and wbc's, deferring treatment as she is asymptomatic at this time, will await urine culture. I discussed with patient to follow-up with her PCP. Given strict return precautions. Patient stable for discharge. Differential Diagnosis Differential Diagnoses: The differential diagnosis associated with the presentation includes As per [facility] Admission/Observation Consideration of admission/observation: Escalation of care including admission/observation considered Patient would have been admitted to the hospital had their clinical presentation warranted hospital admission. Lab Data [facility] Lab Attestation statement: I reviewed the patient's lab results. Labs were reviewed, she has slight hyperglycemia at 134. T bili elevated at 1.8, she has a history of this, slight elevation in AST. See [facility] and regards to urine 01/12/25 18:21 Labs: Lab Results 01/12/25 01/12/25 Range/Units 17:59 18:21 WBC Cancelled RBC Cancelled Hgb Cancelled Hct Cancelled MCV Cancelled MCH Cancelled MCHC Cancelled RDW Cancelled Plt Count Cancelled MPV Cancelled Immature Gran % (Auto) Cancelled Neut % (Auto) Cancelled Lymph % (Auto) Cancelled [place] % (Auto) Cancelled Eos % (Auto) Cancelled Baso % (Auto) Cancelled Lymph # (Auto) Cancelled [place] # (Auto) Cancelled Eos # (Auto) Cancelled Baso # (Auto) Cancelled Abs Immat Gran (auto) Cancelled Absolute Neuts (auto) Cancelled Absolute Nucleated RBC Cancelled Nucleated RBC % (auto) Cancelled Sodium 141 (135-145) mmol/L Potassium 3.5 (3.3-5.1) mmol/L Chloride 100 (96-108) mmol/L Carbon Dioxide 28 (22-29) mmol/L Anion Gap 17 (12-20) BUN 14 (9-16) mg/dL Creatinine 0.95 (0.5-1.4) mg/dL Estim Creat Clear Calc 68.4 Estimated GFR 57 Random Glucose 134 H (60-115) mg/dL Calcium 9.2 D (8.4-10.2) mg/dL Total Bilirubin 1.8 H (0.0-1.0) mg/dL AST 51 H (5-31) U/L ALT 14 (0-31) U/L Alkaline Phosphatase 68 (39-117) U/L Total Protein 6.7 (6.5-8.0) g/dL Albumin 4.0 (3.5-5.0) g/dL Urine Color Yellow Urine Appearance Clear Urine pH 6.5 (5.0-9.0) Ur Specific [place] <= 1.005 (1.005-1.025) Urine Protein Negative (Neg-Trace) mg/dL Urine Glucose (UA) Negative (Negative) mg/dL Urine Ketones Negative (Negative) mg/dL Urine Blood Negative (Negative) Urine Nitrite Negative (Negative) Ur Leukocyte Esterase Trace H (Negative) Urine RBC 0-2 (0-2) /HPF Urine WBC 6-10 H (0-5) /HPF Ur Squamous Epith Cells 0-2 (0-2) /HPF Urine Bacteria 1+ (None Seen) Hyaline Casts 0-2 (0-2) /LPF Radiology Impression Discussion of test interpretation with radiology: I have reviewed the radiologist's reading. Radiologist Impression: Comparison: None provided Findings: No acute fracture or malalignment. Degenerative changes throughout the SI joints, pubic symphysis and hips bilaterally. The soft tissues are unremarkable. IMPRESSION: No acute findings. This document has been electronically signed by: Max Arias MD on 01/12/2025 18:33:24 Dictated By: Max Arias MD Findings: Osteopenia. No acute fracture. Moderate tricompartmental osteoarthritis with joint space narrowing pronounced in the medial and patellofemoral compartments. No joint effusion. No radiopaque foreign body. Anterior soft tissue swelling. IMPRESSION: No acute fracture. This document has been electronically signed by: Max Arias MD on 01/12/2025 18:28:53 Dictated By: Max Arias MD External Record Review External record reviewed: Inpatient record, Office record and Outpatient record Discharge Plan Discharge Clinical Impression: Muscle strain of left hip, Muscle strain of left knee Patient Disposition: Home, Self-Care Instructions: Muscle Strain (DC) Additional Instructions: You were evaluated in the emergency department today for left hip and knee pain. Your x-rays did not show evidence of fractures. Your pain is likely due to muscle strains. We recommend that you take 650 mg of Tylenol or 600 mg of ibuprofen every 6 hours as needed for pain. If necessary, you can alternate these medications every 3 hours. For example, at 9:00 a.m. take Tylenol, then at noon take ibuprofen, then at 3:00 p.m. take Tylenol, etc.. Follow up with orthopedics for any ongoing symptoms. We recommend that you follow up with your primary care provider as well. Return to the emergency department for worsening pain or other new or concerning symptoms. Unfortunately your blood work did clot therefore we are unable to redness, you did not want to stay for repeat testing. We are unable to rule out any anemia, or any infection however your presentation today does not seem to be concerning for these. Please follow-up with your primary care physician. Prescriptions: New cefuroxime axetil 250 mg tablet 250 mg PO BID 7 Days Qty: 14 0RF Referrals: [facility] [place] [facility] [Provider Group] - 1 week Referral Note: left hip and knee pain Interventions: ED Discharge Assessment Last Done: 01/12/25 19:58 Discharge Date/Time: 01/12/25 20:13 Print Language: Spanish
[2025-01-12] MEDS: oxyCODONE HCl Immed Release 5 MG TABLET PO (16:16)
[2025-01-12 18:12] LABS: Appearance Urine Clear; Glucose Urine UA Negative (Negative); PH 6.5 (5.0-9.0); Specific Gravity - Urine <= 1.005 (1.005-1.025); UMIC TRIGGER UACC YES
[2025-01-12 18:14] LABS: UACC Culture Trigger YES
[2025-01-12 18:52] LABS: Alanine Aminotransferase 14 U/L (0-31); Albumin Level 4.0 g/dL (3.5-5.0); Alkaline Phosphatase 68 U/L (39-117); Anion Gap 17 (12-20); Aspartate Amino Transferase 51 U/L (5-31); Blood Urea Nitrogen 14 mg/dL (9-16); Calcium 9.2 mg/dL (8.4-10.2); Carbon Dioxide 28 mmol/L (22-29); Chloride 100 mmol/L (96-108); Creatinine Clr Calc Pharmacy 68.4; Estimated Glomerular Filt Rate 57; Potassium 3.5 mmol/L (3.3-5.1); Sodium 141 mmol/L (135-145); Total Protein 6.7 g/dL (6.5-8.0)
[2025-01-12 19:58] VITALS: BP 109/55; PULSE 89; RESP 18; TEMP 37.1; O2SAT 99
== END 2025-01-12 20:13 | disposition home or self-care (01) ==
PROVIDERS: Registered Nurse Emergency; Emergency Provider Emergency Medicine; PCP Internal Medicine
DX: S76.012A Strain of muscle, fascia and tendon of left hip, initial encounter (principal); S86.812A Strain of other muscle(s) and tendon(s) at lower leg level, left leg, initial encounter; M25.552 Pain in left hip; W19.XXXA Unspecified fall, initial encounter; Y93.9 Activity, unspecified; Y92.9 Unspecified place or not applicable; Y99.9 Unspecified external cause status; Z79.899 Other long term (current) drug therapy
CPT/HCPCS: 36415; 73502; 73564; 80053; 81001; 85025; 87086; 87088; 87186; 99283; 99284

== ENCOUNTER → 2025-01-12 15:53 | Outpatient (BNV) | payer MEDICARE, OTHER, SELFPAY | PROVIDERS: Emergency Provider Emergency Medicine; PCP Internal Medicine; Visit Provider Radiology Diagnostic Radiology | DX: M17.12 Unilateral primary osteoarthritis, left knee (principal); M16.12 Unilateral primary osteoarthritis, left hip | CPT/HCPCS: 73502; 73564 ==